=== PATIENT | male | born 1950 | race Caucasian/White ===

== ENCOUNTER → 2017-02-15 | Outpatient (CLI) | payer OTHER ==
--- NOTE | 2017-02-15 15:52 | MR ---
EXAMINATION TYPE: MR brain and iac wo/w con DATE OF EXAM: 02/15/2017 COMPARISON: NONE HISTORY: Acoustic nerve dis, Hearing loss CONTRAST: Performed utilizing 8.5 mL intravenous Gadavist gadolinium contrast. TECHNIQUE: Multiplanar, multiecho imaging on a 3.0 Jessica magnet is performed through the brain. Atte ntion is paid to the internal auditory canals with thin section imaging. Postcontrast imaging is per formed through the internal auditory canals. FINDINGS:Craniovertebral junction is normal. The pituitary is normal. Diffusion-weighted imaging is performed. No suspicious hyperintensity is present to suggest an acute intracranial infarct or acute ischemic area. Signal within the brain has scattered subcortical white matter changes throughout the brain this is g reater than expected for the patient age. Differential diagnosis could include chronic white matter i schemic changes, vasculitis, multiple sclerosis, Lyme disease.. Thin section imaging is performed through the internal auditory canals and cerebellar pontine angles. No cerebellar pontine angle masses are evident. The internal auditory canals appear normal without expansion or erosion. Postcontrast imaging was performed. No suspicious enhancement is evident within the internal audito ry canals or the included portions of the brain. Portions of the optic chiasm is visualized are unre markable. IMPRESSIONS: 1. Normal internal auditory canals. 2. Multiple subcortical white matter changes. Correlate for chronic white matter ischemic changes. Mu ltiple sclerosis is not excluded.
== END | disposition home or self-care (01) ==
LOC: RADMRIMAIN 13:09
PROVIDERS: ATTEND Otolaryngology
DX: R90.82 White matter disease, unspecified (principal); H91.92 Unspecified hearing loss, left ear; H93.3X2 Disorders of left acoustic nerve
CPT/HCPCS: 82565; 70553; A9581

== ENCOUNTER 2020-09-30 18:37 | Inpatient (IN) | payer MEDICARE, OTHER ==
[2020-09-30] MEDS ORDERED: VANCOMYCIN IV PER PHARMACY 1 EACH MISC MISCELLANE PRN (20:40)
[2020-09-30] MEDS ORDERED: AMPICILLIN-SULBACTAM 3 GM in SODIUM CHLORIDE 0.9% 100 ML IVPB STA (20:40)
--- NOTE | 2020-09-30 21:01 | ED ---
Upper Extremity HPI - General Chief Complaint: Extremity Injury, Upper Stated Complaint: fluid on elbow Time Seen by Provider: 09/30/20 20:20 Source: patient Mode of arrival: ambulatory Limitations: no limitations - History of Present Illness Initial Comments: 70 year-old male patient presents to the emergency department sent by his Dr. Browning his orthopedic brace maker for admission. Patient had surgery to the right elbow for olecranon bursitis on 09/16/20. Patient states that he had a drain in place. Since the took the drain out he has continued to have purulent discharge from the area. He reports mild discomfort. Denies any fever or chills. Denies a ny current antibiotic use. Patient denies any recent rash, cough, shortness of breath, chest pain, abdominal pain, nausea, vomiting, diarrhea, constipation, back pain, numbness, tingling, dizziness, weakness, hematuria, dysuria, urinary urgency, urinary frequency, headache, visual changes, or any other complaints. - Related Data Allergies Allergy/AdvReac Type Severity Reaction Status Date / Time No Known Allergies Allergy Verified 09/30/20 21:43 Review of Systems ROS Statement: Those systems with pertinent positive or pertinent negative responses have been documented in the HPI. ROS Other: All systems not noted in ROS Statement are negative. Past Medical History Past Medical History: Hyperlipidemia History of Any Multi-Drug Resistant Organisms: MRSA Date of last positivie culture/infection: 09/16/2020 MDRO Source:: right elbow Past Surgical History: Orthopedic Surgery Past Psychological History: No Psychological Hx Reported Smoking Status: Never smoker Past Alcohol Use History: Daily Past Drug Use History: None Reported General Exam Limitations: no limitations General appearance: alert, in no apparent distress, other (This is a well- developed, well-nourished adult male patient in no acute distress. Vital signs upon presentation are temperature 98.0F, pulse 78, respirations 17, blood pressure 151/79, pulse ox 99% on room air.) Respiratory exam: Present: normal lung sounds bilaterally. Absent: respiratory distress, wheezes, rales, rhonchi, stridor Cardiovascular Exam: Present: regular rate, normal rhythm, normal heart sounds. Absent: systolic murmur, diastolic murmur, rubs, gallop, clicks Extremities exam: Present: full ROM, normal capillary refill, other (open wound right elbow, copious purulent drainage. No odor. Mild swelling to the right arm. radial pulses 2+.). Absent: tenderness, pedal edema, joint swelling, calf tenderness Neurological exam: Present: alert, oriented X3, CN II-XII intact Psychiatric exam: Present: normal affect, normal mood Skin exam: Present: warm, dry, intact, normal color. Absent: rash Course Vital Signs 09/30/20 09/30/20 10/01/20 20:07 23:48 00:39 Temperature 98.0 F 98.1 F Pulse Rate 78 70 67 Respiratory 17 18 18 Rate Blood Pressure 151/79 139/78 134/82 O2 Sat by Pulse 99 99 98 Oximetry 10/01/20 10/01/20 01:40 03:00 Temperature Pulse Rate 68 63 Respiratory 18 18 Rate Blood Pressure 143/84 108/62 O2 Sat by Pulse 100 100 Oximetry Medical Decision Making - Medical Decision Making 70-year-old male patient presents the emergency department sent by his orthopedic brace maker for evaluation of purulent drainage from right elbow surgical incision. Physical examination revealed copious purulent drainage, surr ounding swelling. He is afebrile normal vital signs. Labs reviewed and revealed normal white blood cell count. X-ray was obtained and showed possible osteomyelitis on the olecranon process. Patient was started on Unasyn and vancomycin. He'll be admitted to the hospital for further evaluation by infectious disease. Case discussed with my attending Dr. Anderson. - Lab Data Result diagrams: 09/30/20 21:38 09/30/20 21:38 Lab Results 09/30/20 09/30/20 09/30/20 Range/Units 21:38 21:38 21:38 WBC 7.8 (3.8-10.6) k/uL RBC 3.75 L (4.30-5.90) m/uL Hgb 12.2 L (13.0-17.5) gm/dL Hct 36.8 L (39.0-53.0) % MCV 98.3 (80.0-100.0) fL MCH 32.5 (25.0-35.0) pg MCHC 33.1 (31.0-37.0) g/dL RDW 16.0 H (11.5-15.5) % Plt Count 254 (150-450) k/uL MPV 7.4 Neutrophils % 67 % Lymphocytes % 22 % Monocytes % 6 % Eosinophils % 2 % Basophils % 1 % Neutrophils # 5.2 (1.3-7.7) k/uL Lymphocytes # 1.7 (1.0-4.8) k/uL Monocytes # 0.5 (0-1.0) k/uL Eosinophils # 0.2 (0-0.7) k/uL Basophils # 0.0 (0-0.2) k/uL Macrocytosis Slight Sodium 139 (137-145) mmol/L Potassium 4.3 (3.5-5.1) mmol/L Chloride 103 (98-107) mmol/L Carbon Dioxide 28 (22-30) mmol/L Anion Gap 8 mmol/L BUN 18 (9-20) mg/dL Creatinine 0.96 (0.66-1.25) mg/dL Est GFR (CKD-EPI)AfAm >90 (>60 ml/min/1.73 sqM) Est GFR (CKD-EPI)NonAf 80 (>60 ml/min/1.73 sqM) Glucose 118 H (74-99) mg/dL Plasma Lactic Acid Clarence 0.7 (0.7-2.0) mmol/L Calcium 9.6 (8.4-10.2) mg/dL Total Bilirubin 0.4 (0.2-1.3) mg/dL AST 25 (17-59) U/L ALT 13 (4-49) U/L Alkaline Phosphatase 107 (38-126) U/L Total Protein 6.8 (6.3-8.2) g/dL Albumin 4.2 (3.5-5.0) g/dL - Radiology Data Radiology results: report reviewed, image reviewed 3 views of the right elbow are obtained. Report is reviewed in its entirety. Impression by Dr. Orlando shows erosion seen on the olecranon process that could be osteomyelitis. No fracture seen. Posterior soft tissue deformity. Disposition Clinical Impression: Septic bursitis, Osteomyelitis Disposition: ADMITTED IP TO THIS [facility] Condition: Serious Decision to Admit Reason: Admit from [facility] Decision Date: 09/30/20 Decision Time: 23:00
--- NOTE | 2020-09-30 21:13 | XR ---
EXAMINATION TYPE: XR elbow complete RT DATE OF EXAM: 09/30/2020 COMPARISON: NONE HISTORY: Infected surgical wound TECHNIQUE: 3 views FINDINGS: I see no fracture nor dislocation. There is posterior soft tissue deformity consistent with a wound. There is some erosion of the olecranon process of the ulna. This measures approximately 8 x 3 mm. IMPRESSION: Erosion seen on the olecranon process that could be osteomyelitis. No fracture seen. Post erior soft tissue deformity.
[2020-09-30 21:53] LABS: Basophils % (A) 1 %; Eosinophils # (A) 0.2 k/uL (0-0.7); Eosinophils % (A) 2 %; HCT 36.8 % (39.0-53.0); HGB 12.2 gm/dL (13.0-17.5); Lymphocytes # (A) 1.7 k/uL (1.0-4.8); Lymphocytes % (A) 22 %; MCH 32.5 pg (25.0-35.0); MCHC 33.1 g/dL (31.0-37.0); MCV 98.3 fL (80.0-100.0); Macrocytosis Slight; Mean Platelet Volume 7.4; Monocytes # (A) 0.5 k/uL (0-1.0); Monocytes % (A) 6 %; Neutrophils # (A) 5.2 k/uL (1.3-7.7); Neutrophils % (A) 67 %; Platelet Count 254 k/uL (150-450); RBC 3.75 m/uL (4.30-5.90); WBC 7.8 k/uL (3.8-10.6)
[2020-09-30] MEDS ORDERED: VANCOMYCIN 1,500 MG in SODIUM CHLORIDE 0.9% 250 ML IVPB ONE (22:00)
[2020-09-30 22:02] LABS: ALT 13 U/L (4-49); AST 25 U/L (17-59); African American GFR (CKD) >90 (>60 ml/min/1.73 sqM); Albumin 4.2 g/dL (3.5-5.0); Alkaline Phosphatase 107 U/L (38-126); Anion Gap 8 mmol/L; Blood Urea Nitrogen 18 mg/dL (9-20); Calcium 9.6 mg/dL (8.4-10.2); Carbon Dioxide 28 mmol/L (22-30); Chloride 103 mmol/L (98-107); Glucose 118 mg/dL (74-99); Non-African American GFR(CKD) 80 (>60 ml/min/1.73 sqM); Potassium 4.3 mmol/L (3.5-5.1); Sodium 139 mmol/L (137-145); Total Bilirubin 0.4 mg/dL (0.2-1.3); Total Protein 6.8 g/dL (6.3-8.2)
[2020-09-30] MEDS ORDERED: NALOXONE 0.4 MG/ML 1 ML VIAL IV PRN (22:57)
[2020-09-30] MEDS: SODIUM CHLORIDE 0.9% 1,000 ML IV SCH (23:48)
[2020-10-01] MEDS: AMPICILLIN-SULBACTAM 3 GM in SODIUM CHLORIDE 0.9% 100 ML IVPB SCH ×2 (05:25→09:12)
--- NOTE | 2020-10-01 09:45 | P.HPOR ---
History of Present Illness H&P Date: 09/30/20 Chief Complaint: Right elbow infection This is a pleasant 70-year-old male who we have been following in our office for problems with his right elbow. He had developed infection to the right elbow olecranon bursa and had an opening with draining. He was taken to the OR on 0 09/16/2020 for I&D of the elbow along with triceps repair. The patient was seen for his. Evaluation on 09/30/2020 and was noted to have significant drainage and a large opening to the elbow. He was on antibiotics which she finished 2 days prior. Patient has history of rheumatoid arthritis and is on and immunosuppressive-type medication for his arthritis. He is not sure of the name of his medication. He is a patient of Dr. Gómez. The intraoperative cultures showed methicillin sensitive staph aureus. He is admitted for service for IV antibiotics and infectious disease and wound care evaluation. Past Medical History Past Medical History: Hyperlipidemia History of Any Multi-Drug Resistant Organisms: MRSA Date of last positivie culture/infection: 09/16/2020 MDRO Source:: right elbow Past Surgical History: Orthopedic Surgery Past Psychological History: No Psychological Hx Reported Smoking Status: Never smoker Past Alcohol Use History: Daily Past Drug Use History: None Reported Medications and Allergies Allergies Allergy/AdvReac Type Severity Reaction Status Date / Time No Known Allergies Allergy Verified 09/30/20 21:43 Physical Examination This is a pleasant 70-year-old male in no acute distress. He is alert and oriented 3. He presented to the office with his . Exam of the right elbow reveals minimal erythema. There is a 1 cm opening in the middle of the incision. Sutures are removed and the incision has opened a bit. There is significant purulent drainage from the wound. The triceps repair suture is visible. He has full range of motion of the elbow with minimal pain. Neurovascular status the upper extremity is intact. Results - Labs Labs: Abnormal Lab Results - Last 24 Hours (Table) 09/30/20 09/30/20 Range/Units 21:38 21:38 RBC 3.75 L (4.30-5.90) m/uL Hgb 12.2 L (13.0-17.5) gm/dL Hct 36.8 L (39.0-53.0) % RDW 16.0 H (11.5-15.5) % Glucose 118 H (74-99) mg/dL Microbiology - Last 24 Hours (Table) 09/30/20 21:38 Gram Stain - Preliminary Elbow - Right Wound Culture - Preliminary H & H 09/30/20 Range/Units 21:38 Hgb 12.2 L (13.0-17.5) gm/dL Hct 36.8 L (39.0-53.0) % Result Diagrams: 09/30/20 21:38 09/30/20 21:38 Assessment and Plan (1) Infection of right elbow Current Visit: Yes Status: Acute Code(s): M00.9 - PYOGENIC ARTHRITIS, UNSPECIFIED SNOMED Code(s): 570873260 (2) Septic bursitis Current Visit: Yes Status: Acute Code(s): M71.10 - OTHER INFECTIVE BURSITIS, UNSPECIFIED SITE SNOMED Code(s): 490119221 Plan: The clinical findings are discussed with the patient. It is recommended he be admitted for IV antibiotics and evaluation with wound care management and infectious disease. He likely would benefit from a wound VAC to the area. I will defer that to Dr Tristan and wound care team. Internal medicine has also been consulted for medical management.
[2020-10-01] MEDS ORDERED: VANCOMYCIN 1,500 MG in SODIUM CHLORIDE 0.9% 250 ML IVPB SCH (10:00)
--- NOTE | 2020-10-01 13:14 | P.HPIM ---
<Ethan Spicer - Last Filed: 10/01/20 12:48> History of Present Illness H&P Date: 10/01/20 History of Presenting Illness: Patient is a 70-year-old male with a past medical history of hyperlipidemia and rheumatoid arthritis. He was recently diagnosed with infectious bursitis and underwent a surgical I&D, triceps repair and drain placement on 09/16/[address] Browning. Patient reports that the drain was removed a few days later by his orthopedic surgeon and he has since been having continued purulent drainage from this open wound. Patient is currently admitted under orthopedic surgery team under Dr. Browning. We have been consulted for continued close medical management throughout his hospital stay. Infectious disease also following and has placed patient on cefazolin 2 g every 8 hours. Patient has a history of MRSA with recent wound cultures obtained on 09/16/20 resulting positive for Staphylococcus aureus. Patient was seen and fully examined in the emergency department. He reports currently having 8 out of 10 pain to his right elbow and describes it as a constant throbbing sensation. Patient denies having any recent fevers, chills, diaphoresis, chest pain or palpitations, shortness of breath, or experiencing any numbness/tingling/weakness in his right arm distal to surgical site. Patient does report persistent pain, redness, and drainage. Patient reports he has been tolerating a diet and denies having any other complaints or needs at this time. Review of systems: Pertinent positives and negatives as discussed in HPI, a complete review of systems was performed and all other systems are negative. Physical exam: Vital signs reviewed and stable. General: Nontoxic, no distress and appears stated age. Derm: Skin warm and dry, normal coloration for ethnicity. Right elbow open wound with packing in place surrounding erythema and drainage. Dressing in place. Head: Atraumatic, normocephalic and symmetric. Eyes: EOMs intact, no lid lag, and anicteric sclera Mouth: no lip lesions, mucus membranes moist Cardiovascular: regular rate and rhythm with normal S1S2, no murmur, positive posterior tibial pulses bilaterally, and cap refill < 2 seconds. Lungs: Respirations even, regular, and unlabored on room air. Lungs CTA bilaterally, no rhonchi, no rales, no wheezing, and no accessory muscle usage. Abdominal: soft, nontender to palpation, no guarding, no appreciable organomegaly Ext: ROM intact. No gross muscle atrophy, no edema, no contractures Neuro: Speech clear, face symmetrical and CN II-XII grossly intact with no noted focal neuro deficits Psych: Alert and oriented to person, place, time, and situation. Appropriate and pleasant affect. Assessment and Plan of Care: Infectious olecranon bursitis of right elbow status post I&D with delayed wound healing -Pt was recently diagnosed with infectious bursitis and underwent a surgical I&D, triceps repair and drain placement on 09/16/[address] Browning. -Patient has a history of MRSA with recent wound cultures obtained on 09/16/20 resulting positive for Staphylococcus aureus -Repeat wound cultures and blood cultures obtained. -Continue IV antibiotics with cefazolin as recommended by infectious disease. -Pain management and symptomatic care. -Hold methotrexate while treating acute infection. Rheumatoid arthritis -Hold methotrexate at this time while acute infection is being treated. -Pain management and symptomatic care to be provided. -Patient to be provided with assistance as needed. Hyperlipidemia Continue daily medication regimen with atorvastatin 20 mg nightly. Thank you for allowing us to participate in the care of this pleasant patient. Do not hesitate to contact us with questions. Someone can be reached from the [facility] hospitalist group all hours of the day at [phone] or via [employer]. Past Medical History Past Medical History: Hyperlipidemia History of Any Multi-Drug Resistant Organisms: MRSA Date of last positivie culture/infection: 09/16/2020 MDRO Source:: right elbow Past Surgical History: Orthopedic Surgery Past Psychological History: No Psychological Hx Reported Smoking Status: Never smoker Past Alcohol Use History: Daily Past Drug Use History: None Reported Medications and Allergies Home Medications Medication Instructions Recorded Confirmed Type Albuterol Sulfate [Albuterol 1 puff PO RT-Q6H PRN 10/01/20 10/01/20 History Sulfate Hfa] Cholecalciferol [Vitamin D3 (25 25 mcg PO DAILY 10/01/20 10/01/20 History Mcg = 1000 Iu)] Folic Acid 1 mg PO DAILY 10/01/20 10/01/20 History Naproxen [Naprosyn] 500 mg PO Q12HR PRN 10/01/20 10/01/20 History Simvastatin [Zocor] 40 mg PO HS 10/01/20 10/01/20 History metHOTREXate sodium [Methotrexate] 12.5 mg PO Q7D 10/01/20 10/01/20 History Allergies Allergy/AdvReac Type Severity Reaction Status Date / Time No Known Allergies Allergy Verified 10/01/20 09:41 Physical Exam Vitals: Vital Signs Temp Pulse Resp BP Pulse Ox 10/01/20 05:28 97.1 F L 59 L 18 123/68 98 10/01/20 03:00 63 18 108/62 100 10/01/20 01:40 68 18 143/84 100 10/01/20 00:39 67 18 134/82 98 09/30/20 23:48 98.1 F 70 18 139/78 99 09/30/20 20:07 98.0 F 78 17 151/79 99 Intake and Output 09/30/20 10/01/20 10/01/20 22:59 06:59 14:59 Other: Weight 85.275 kg 85.275 kg Results CBC & Chem 7: 09/30/20 21:38 09/30/20 21:38 Labs: Abnormal Lab Results - Last 24 Hours (Table) 09/30/20 09/30/20 Range/Units 21:38 21:38 RBC 3.75 L (4.30-5.90) m/uL Hgb 12.2 L (13.0-17.5) gm/dL Hct 36.8 L (39.0-53.0) % RDW 16.0 H (11.5-15.5) % Glucose 118 H (74-99) mg/dL Microbiology - Last 24 Hours (Table) 09/30/20 21:38 Gram Stain - Preliminary Elbow - Right Wound Culture - Preliminary Thrombosis Risk Factor Assmnt - Choose All That Apply Any of the Below Risk Factors Present?: Yes Each Factor Represents 1 point: Obesity (BMI >25) Other Risk Factors: Yes Each Risk Factor Represents 2 Points: Age 61-74 years Thrombosis Risk Factor Assessment Total Risk Factor Score: 3 Thrombosis Risk Factor Assessment Level: Moderate Risk <Megan Lamar - Last Filed: 10/01/20 18:52> History of Present Illness Patient seen and examined independently. Patient was also seen by Ethan Spicer NP and case was discussed. I am in agreement with subjective, physical exam, assessment and plan as written above and amended below. He is feeling okay, not much pain in the elbow. We had a jonas discussion I he will likely need IV antibiotics. Await infectious disease recommendations. Orthopedics is concerned that he will need a wound VAC over the area, awaiting final dictation from infectious disease. Agree with holding methotrexate at this time. General: non toxic, no distress, appears at stated age Derm: warm, dry dressing in place over right elbow Head: atraumatic, normocephalic, symmetric Eyes: EOMI, no lid lag, anicteric sclera Mouth: no lip lesion, mucus membranes moist Cardiovascular: S1S2 reg, no murmur, positive posterior tibial pulse bilateral, Lungs: CTA bilateral, no rhonchi, no rales , no accessory muscle use Psych: Alert, oriented, appropriate affect Physical Exam Osteopathic Statement: *. No significant issues noted on an osteopathic structural exam other than those noted in the History and Physical/Consult. Vitals: Vital Signs Temp Pulse Pulse Resp BP BP Pulse Ox 10/01/20 14:00 97.7 F 66 16 112/63 99 10/01/20 05:28 97.1 F L 59 L 18 123/68 98 10/01/20 03:00 63 18 108/62 100 10/01/20 01:40 68 18 143/84 100 10/01/20 00:39 67 18 134/82 98 09/30/20 23:48 98.1 F 70 18 139/78 99 09/30/20 20:07 98.0 F 78 17 151/79 99 Intake and Output 10/01/20 10/01/20 10/01/20 06:59 14:59 22:59 Intake Total 236 236 Balance 236 236 Intake: Oral 236 236 Other: # Voids 2 Weight 85.275 kg Results CBC & Chem 7: 09/30/20 21:38 09/30/20 21:38 Labs: Abnormal Lab Results - Last 24 Hours (Table) 09/30/20 09/30/20 Range/Units 21:38 21:38 RBC 3.75 L (4.30-5.90) m/uL Hgb 12.2 L (13.0-17.5) gm/dL Hct 36.8 L (39.0-53.0) % RDW 16.0 H (11.5-15.5) % Glucose 118 H (74-99) mg/dL Microbiology - Last 24 Hours (Table) 09/30/20 21:38 Gram Stain - Preliminary Elbow - Right Wound Culture - Preliminary
[2020-10-01] MEDS: HEPARIN SODIUM,PORCINE/PF 5,000 UNIT/0.5 ML SYRINGE SQ SCH ×2 (16:30→23:27)
[2020-10-01] MEDS: SODIUM CHLORIDE 0.9% 1,000 ML IV SCH (16:33)
[2020-10-01] MEDS: ATORVASTATIN 20 MG TAB PO SCH (21:50)
[2020-10-01] MEDS: HYDROcodone/APAP 5-325MG 1 EACH TAB PO PRN (21:50)
[2020-10-02] MEDS: SODIUM CHLORIDE 0.9% 1,000 ML IV SCH ×2 (01:58→16:24)
[2020-10-02 07:39] LABS: African American GFR (CKD) >90 (>60 ml/min/1.73 sqM); Non-African American GFR(CKD) >90 (>60 ml/min/1.73 sqM)
--- NOTE | 2020-10-02 08:05 | P.CONS ---
History of Present Illness - Reason for Consult Consult date: 10/01/20 right elbow infection Requesting physician: Aj Browning - Chief Complaint right elbow pain and drainage x few days - History of Present Illness History of present illness : Patient is 70-year-old male with a past medical he significant for rheumatoid arthritis patient recently having problem with the right elbow swelling and redness for the patient has been evaluated in the outpatient setting by orthopedics and the patient did have a office-based I&D done on 09/16/2020 culture subsequently was positive for MSSA the patient has been treated with the oral antibiotics with the patient is not sure about and is not documented in his home medication patient was evaluated and was noticed to have continued purulent drainage from his open wound and some more dehiscence per the patient has been sent to the ER for IV antibiotic therapy patient denies having any fever or any chills has been complaining of pain to the right elbow about 8 out of 10 more of a dull aching at times throbbing and no radiation patient on presentation to the hospital was afebrile patient did have a normal white count patient was started on Unasyn and vancomycin infectious he was con sulted for further management patient did have x-rays of the elbow we did shows erosion seen on the olecranon process that could represent osteomyelitis no fracture seen Review of system: CONSTITUTIONAL: Positive for weakness however denies high-grade fever. EYES: No complaint. ENT: No complaint. RESPIRATORY: No complaint. CARDIOVASCULAR: No complaint. GENITOURINARY: No complaint. GASTROINTESTINAL: No complaint. MUSCULOSKELETAL: As per history present illness. INTEGUMENTARY: No complaint. PSYCHOLOGIC: No complaint. ENDOCRINE: No complaint. NEUROLOGIC: No complaint. Past medical history : Reviewed, documented below Past surgical history : Reviewed, documented below Social history: Reviewed, documented below Medications: Reviewed, as documented below GENERAL DESCRIPTION: Elderly male lying in bed, no distress. No tachypnea or accessory muscle of respiration use. HEENT: Shows Pallor , no scleral icterus. Oral mucous membrane is dry. NECK: Trachea central, no thyromegaly. LUNGS: Unlabored breathing. Clear to auscultation anteriorly. No wheeze or crackle. HEART: S1, S2, regular rate and rhythm. ABDOMEN: Soft, no tenderness , guarding or rigidity EXTREMITIES: Right elbow did have an open wound with no significant slough tissue no surrounding swelling redness and minimal drainage. SKIN: No rash, no masses palpable. NEUROLOGICAL: The patient is awake, alert, oriented x3, mood and affect normal. LABS AND RADIOLOGY: Reviewed results see below Assessment : Patient with a pain and draining wound to the right elbow area in this patient who is status post triceps repair and I&D of the olecranon bursa cultures positive for MSSA in this patient who has failed outpatient oral bite therapy now with the abnormality on the x-ray suspicious for osteomyelitis Plan: 1-discontinue vancomycin and Unasyn 2-cefazolin 2 g every 8 hour 3-obtain inflammatory markers 4-patient will need PICC line and outpatient IV antibiotic therapy We will follow on clinical condition and cultures to further adjust medication if needed Thank you for this consultation we will follow the patient along with you Past Medical History Past Medical History: Hyperlipidemia History of Any Multi-Drug Resistant Organisms: MRSA Year Discovered:: 09/16/2020 MDRO Source:: right elbow Past Surgical History: Orthopedic Surgery Past Psychological History: No Psychological Hx Reported Smoking Status: Never smoker Past Alcohol Use History: Daily Past Drug Use History: None Reported Medications and Allergies Home Medications Medication Instructions Recorded Confirmed Type Albuterol Sulfate [Albuterol 1 puff PO RT-Q6H PRN 10/01/20 10/01/20 History Sulfate Hfa] Cholecalciferol [Vitamin D3 (25 25 mcg PO DAILY 10/01/20 10/01/20 History Mcg = 1000 Iu)] Folic Acid 1 mg PO DAILY 10/01/20 10/01/20 History Naproxen [Naprosyn] 500 mg PO Q12HR PRN 10/01/20 10/01/20 History Simvastatin [Zocor] 40 mg PO HS 10/01/20 10/01/20 History metHOTREXate sodium [Methotrexate] 12.5 mg PO Q7D 10/01/20 10/01/20 History Allergies Allergy/AdvReac Type Severity Reaction Status Date / Time No Known Allergies Allergy Verified 10/01/20 09:41 Physical Exam Vitals: Vital Signs Temp Pulse Resp BP Pulse Ox 10/01/20 05:28 97.1 F L 59 L 18 123/68 98 10/01/20 03:00 63 18 108/62 100 10/01/20 01:40 68 18 143/84 100 10/01/20 00:39 67 18 134/82 98 09/30/20 23:48 98.1 F 70 18 139/78 99 09/30/20 20:07 98.0 F 78 17 151/79 99 Intake and Output 09/30/20 10/01/20 10/01/20 22:59 06:59 14:59 Other: Weight 85.275 kg Results CBC & Chem 7: 09/30/20 21:38 10/02/20 06:54 Labs: Abnormal Lab Results - Last 24 Hours (Table) 09/30/20 09/30/20 Range/Units 21:38 21:38 RBC 3.75 L (4.30-5.90) m/uL Hgb 12.2 L (13.0-17.5) gm/dL Hct 36.8 L (39.0-53.0) % RDW 16.0 H (11.5-15.5) % Glucose 118 H (74-99) mg/dL Microbiology - Last 24 Hours (Table) 09/30/20 21:38 Gram Stain - Preliminary Elbow - Right Wound Culture - Preliminary
[2020-10-02] MEDS ORDERED: VANCOMYCIN TROUGH DUE 1 EACH MISC MISCELLANE ONE (09:00)
--- NOTE | 2020-10-02 09:23 | P.PN ---
Subjective Progress Note Date: 10/02/20 Principal diagnosis: Infection right elbow. This is a pleasant 70-year-old male who we have been following in our office for problems with his right elbow. He had developed infection to the right elbow olecranon bursa and had an opening with draining. He was taken to the OR on 09/16/2020 for I&D of the elbow along with triceps repair. The patient was seen for his postop evaluation on 09/30/2020 and was noted to have significant drainage and a large opening to the elbow. He was on antibiotics which she finished 2 days prior. Patient has history of rheumatoid arthritis and is on and immunosuppressive-type medication for his arthritis. He is not sure of the name of his medication. He is a patient of Dr. Gómez. The intraoperative cultures showed methicillin sensitive staph aureus. He is admitted for service for IV antibiotics and infectious disease and wound care evaluation. 10/02/2020: The patient has been seen by infectious disease. Repeat cultures were taken which are pending. Blood cultures are showing no growth at 24 hours. Elbow x-ray shows questionable erosion at the olecranon versus postsurgical changes from the triceps repair. The patient is afebrile. No new complaints or concerns today. Objective - Vital Signs Vital signs: Vital Signs Temp 98.3 F 10/02/20 06:45 Pulse 62 10/02/20 06:45 Resp 16 10/02/20 06:45 BP 132/72 10/02/20 06:45 Pulse Ox 96 10/02/20 06:45 Intake & Output 10/01/20 10/02/20 10/02/20 18:59 06:59 18:59 Intake Total 472 Balance 472 Weight 85.275 kg Intake: Oral 472 Other: # Voids 2 1 - Exam this is a pleasant 70-year-old male in no acute distress. He is alert and oriented 3. Exam of the right elbow reveals that his packing has fallen out. Dressing has purulent drainage. There is minimal erythema to the elbow. The wound has opened completely. He has slight restriction elbow motion. Neurovascular status the upper extremities intact. - Labs CBC & Chem 7: 09/30/20 21:38 10/02/20 06:54 Labs: Microbiology - Last 24 Hours (Table) 09/30/20 22:00 Blood Culture - Preliminary Blood No Growth after 24 hours 09/30/20 21:45 Blood Culture - Preliminary Blood No Growth after 24 hours 09/30/20 21:38 Gram Stain - Preliminary Elbow - Right Wound Culture - Preliminary Assessment and Plan (1) Infection of right elbow Current Visit: Yes Status: Acute Code(s): M00.9 - PYOGENIC ARTHRITIS, UNSPECIFIED SNOMED Code(s): 863799464 (2) Septic bursitis Current Visit: Yes Status: Acute Code(s): M71.10 - OTHER INFECTIVE BURSITIS, UNSPECIFIED SITE SNOMED Code(s): 419533745 Plan: The clinical findings are discussed with the patient. infectious disease was planning on PICC line for home IV antibiotics. The wound will be repacked today once iodoform packing is sent to the floor. I would recommend he be seen by wound management for possible wound VAC application and follow-up in the wound care center.
[2020-10-02] MEDS: HEPARIN SODIUM,PORCINE/PF 5,000 UNIT/0.5 ML SYRINGE SQ SCH ×2 (10:09→16:24)
[2020-10-02] MEDS: CHOLECALCIFEROL 25 MCG (1000 IU) TABLET PO SCH (10:09)
[2020-10-02] MEDS: FOLIC ACID 1 MG TAB PO SCH (10:09)
[2020-10-02] MEDS: HYDROcodone/APAP 5-325MG 1 EACH TAB PO PRN ×2 (10:21→16:52)
[2020-10-02] MEDS ORDERED: LIDOCAINE 1% INJ 10MG/ML (20 ML MDV) ONE (10:39)
--- NOTE | 2020-10-02 11:13 | IR ---
PICC LINE PLACEMENT: HISTORY: Infection requiring long-term antibiotic therapy PROCEDURE: Ultrasound and fluoroscopic guidance of PICC line placement. COMPLICATIONS: None ANESTHESIA: 1. 1% Lidocaine locally. FINDINGS/TECHNIQUE: The procedure was explained to the patient. The risks, complications, benefits and alternatives were discussed and any questions were answered. Informed consent was obtained. The patient was placed supine on the fluoroscopic table and prepped and draped in the usual sterile fash ion. Utilizing a 21 gauge needle and sonographic and fluoroscopic guidance, access in the left basi lic vein was achieved and there is placement of a 0.018 guidewire. The vein is patent. A 4-F sheath was placed over the guidewire. The guidewire and dilator were removed and a 4-F. PICC line was plac ed through the sheath with the tip at the level of the SVC. The sheath was removed, the catheter was flushed and sutured into position. The patient was stable throughout the procedure and remained sta ble upon discharge from the Department of Radiology. The vein puncture was patent under ultrasound. A powers scale image was obtained to document patency of the vein punctured. All elements of the maximal barrier technique were utilized. FLUOROSCOPY TIME: 0.2 minutes and one image submitted IMPRESSION: Successful PICC line placement under ultrasound and fluoroscopic guidance.
--- NOTE | 2020-10-02 15:19 | P.PN ---
<Ethan Spicer - Last Filed: 10/02/20 15:10> Subjective Progress Note Date: 10/02/20 Hospital course Patient is a 70-year-old male with a past medical history of hyperlipidemia and rheumatoid arthritis. He was recently diagnosed with infectious bursitis and underwent a surgical I&D, triceps repair and drain placement on 09/16/[address] Browning. Patient reports that the drain was removed a few days later by his orthopedic surgeon and he has since been having continued purulent drainage from this open wound. Patient is currently admitted under orthopedic surgery team under Dr. Browning. We have been consulted for continued close medical management throughout his hospital stay. Infectious disease also following and has placed patient on cefazolin 2 g every 8 hours. X-ray right elbow revealing erosion to the olecranon process unable to rule out osteomyelitis. Patient has a history of MRSA with recent wound cultures obtained on 09/16/20 resulting positive for Staphylococcus aureus. Blood cultures showing no growth after 24 hours. Preliminary wound cultures of right elbow positive for presumptive staph aureus, awaiting finalization with sensitivity report. Patient remains on cefazolin at this time pending these results. 10/02/20: Patient was seen and fully evaluated at the bedside. He was sitting up in the chair. Dressing with packing remains to right elbow. Dressing is currently clean dry and intact. Preliminary cultures of right elbow resulting presumptive for staph aureus. Blood cultures showing no growth after 24 hours. Patient remains on IV antibiotics cefazolin pending further results. Patient reports right elbow pain currently controlled and denies having any further needs or concerns at this time including chills, diaphoresis, headache, lightheadedness, dizziness, chest pain, palpitations, shortness of breath, or experiencing any numbness/tingling/weakness in his extremities. Patient being taken down for PICC line placement this morning for needed home IV antibiotics. Orthopedic specialists recommending possible wound VAC application. Physical exam: Vital signs reviewed and stable. General: Nontoxic, no distress and appears stated age. Derm: Skin warm and dry, normal coloration for ethnicity. Right elbow open wound with packing in place surrounding erythema and drainage. Dressing in place. Head: Atraumatic, normocephalic and symmetric. Eyes: EOMs intact, no lid lag, and anicteric sclera Mouth: no lip lesions, mucus membranes moist Cardiovascular: regular rate and rhythm with normal S1S2, no murmur, positive posterior tibial pulses bilaterally, and cap refill < 2 seconds. Lungs: Respirations even, regular, and unlabored on room air. Lungs CTA bilaterally, no rhonchi, no rales, no wheezing, and no accessory muscle usage. Abdominal: soft, nontender to palpation, no guarding, no appreciable organomegaly Ext: ROM intact. No gross muscle atrophy, no edema, no contractures Neuro: Speech clear, face symmetrical and CN II-XII grossly intact with no noted focal neuro deficits Psych: Alert and oriented to person, place, time, and situation. Appropriate and pleasant affect. Assessment and Plan of Care: Infectious olecranon bursitis of right elbow status post I&D with delayed wound healing -Pt was recently diagnosed with infectious bursitis and underwent a surgical I&D, triceps repair and drain placement on 09/16/[address] Browning. -Patient has a history of MRSA with recent wound cultures obtained on 09/16/20 resulting positive for Staphylococcus aureus. -Repeat wound cultures completed upon arrival to Hospital on 09/30/20 showing a preliminary report of presumptive staph aureus, awaiting final results and sensitivity report. -Blood cultures showing no growth after 24 hours. -Continue IV antibiotics with cefazolin as recommended by infectious disease pending further results. -Pain management and symptomatic care. -Hold methotrexate while treating acute infection. Rheumatoid arthritis -Hold methotrexate at this time while acute infection is being treated. -Pain management and symptomatic care to be provided. -Patient to be provided with assistance as needed. Hyperlipidemia Continue daily medication regimen with atorvastatin 20 mg nightly. Thank you for allowing us to participate in the care of this pleasant patient. Do not hesitate to contact us with questions. Someone can be reached from the [facility] [place] hospitalist group all hours of the day at [phone] or via [employer]. Objective - Vital Signs Vital signs: Vital Signs Temp 98.3 F 10/02/20 06:45 Pulse 62 10/02/20 06:45 Resp 16 10/02/20 06:45 BP 132/72 10/02/20 06:45 Pulse Ox 96 10/02/20 06:45 Intake & Output 10/01/20 10/02/20 10/02/20 18:59 06:59 18:59 Intake Total 472 Balance 472 Weight 85.275 kg Intake: Oral 472 Other: # Voids 2 1 - Labs CBC & Chem 7: 09/30/20 21:38 10/02/20 06:54 Labs: Microbiology - Last 24 Hours (Table) 09/30/20 22:00 Blood Culture - Preliminary Blood No Growth after 24 hours 09/30/20 21:45 Blood Culture - Preliminary Blood No Growth after 24 hours 09/30/20 21:38 Gram Stain - Preliminary Elbow - Right Wound Culture - Preliminary <Megan Lamar - Last Filed: 10/02/20 19:02> Subjective Ethan Spicer NP rendered care for this patient independently, reviewed the findings and plan as documented in the note above. I did not physically speak with or examine the patient on this date. Case discussed with infectious disease. He has ordered outpatient IV antibiotics as well as wound VAC. Currently awaiting approval from ID. Objective - Vital Signs Vital signs: Vital Signs Temp 97.2 F L 10/02/20 14:00 Pulse 62 10/02/20 06:45 Resp 16 10/02/20 14:00 BP 147/77 10/02/20 14:00 Pulse Ox 96 10/02/20 14:00 Intake & Output 10/02/20 10/02/20 10/03/20 06:59 18:59 06:59 Other: # Voids 1 3 # Bowel Movements 1 - Labs CBC & Chem 7: 09/30/20 21:38 10/02/20 06:54 Labs: Microbiology - Last 24 Hours (Table) 09/30/20 21:38 Gram Stain - Preliminary Elbow - Right Wound Culture - Preliminary Presumptive Staph aureus 09/30/20 22:00 Blood Culture - Preliminary Blood No Growth after 24 hours 09/30/20 21:45 Blood Culture - Preliminary Blood No Growth after 24 hours
--- NOTE | 2020-10-02 16:37 | PN ---
PROGRESS NOTE DATE OF SERVICE: 10/02/2020 REASON FOR FOLLOWUP: Right elbow wound and underlying osteomyelitis, MSSA. INTERVAL HISTORY: The patient is afebrile. The patient is currently feeling better, breathing comfortably. Pain to the right elbow has slightly decreased. No chest pain, shortness of breath or cough. No abdominal pain or diarrhea. PHYSICAL EXAMINATION: Blood pressure is 132/72 with a pulse of 72, temperature 98.3. He is 96% on room air. GENERAL DESCRIPTION: General description is an elderly male up in the room in no distress. RESPIRATORY SYSTEM: Unlabored breathing. Clear to auscultation anteriorly. HEART: S1, S2. Regular rate and rhythm. ABDOMEN: Soft. No tenderness. Right elbow wound with no significant slough tissue or surrounding redness or drainage. LABS: Creatinine 0.70. Culture with presumptive Staph aureus. DIAGNOSTIC IMPRESSION AND PLAN: Patient with a right elbow infection concerning for underlying osteomyelitis. Would recommend local wound care with a wound V.A.C., cefazolin 2 grams q.8 hours. Once antibiotic is arranged, will be ready to go from ID standpoint. Continue with supportive care. MMODL / IJN: [id number] /
[2020-10-02] MEDS: ATORVASTATIN 20 MG TAB PO SCH (20:39)
[2020-10-03] MEDS: HEPARIN SODIUM,PORCINE/PF 5,000 UNIT/0.5 ML SYRINGE SQ SCH ×3 (00:01→17:15)
[2020-10-03] MEDS: SODIUM CHLORIDE 0.9% 1,000 ML IV SCH ×2 (06:08→17:15)
[2020-10-03 07:08] LABS: African American GFR (CKD) >90 (>60 ml/min/1.73 sqM); Anion Gap 4 mmol/L; Blood Urea Nitrogen 14 mg/dL (9-20); Calcium 9.1 mg/dL (8.4-10.2); Carbon Dioxide 28 mmol/L (22-30); Chloride 105 mmol/L (98-107); Glucose 116 mg/dL (74-99); Non-African American GFR(CKD) >90 (>60 ml/min/1.73 sqM); Potassium 4.2 mmol/L (3.5-5.1); Sodium 137 mmol/L (137-145)
[2020-10-03] MEDS: HYDROcodone/APAP 5-325MG 1 EACH TAB PO PRN (08:45)
[2020-10-03] MEDS: FOLIC ACID 1 MG TAB PO SCH (08:47)
[2020-10-03] MEDS: CHOLECALCIFEROL 25 MCG (1000 IU) TABLET PO SCH (08:47)
[2020-10-03 08:51] LABS: HCT 33.8 % (39.6-50.0); HGB 10.7 g/dL (13.0-17.0); MCH 31.5 pg (27.0-32.0); MCHC 31.7 g/dL (32.0-37.0); MCV 99.4 fL (80.0-97.0); Mean Platelet Volume 9.6 fL (9.5-12.2); Platelet Count 217 X 10*3/uL (140-440); RDW 15.9 % (11.5-14.5); WBC 5.63 X 10*3/uL (4.50-10.00)
--- NOTE | 2020-10-03 09:51 | P.PN ---
Subjective Progress Note Date: 10/03/20 Principal diagnosis: Infection right elbow. This is a pleasant 70-year-old male who we have been following in our office for problems with his right elbow. He had developed infection to the right elbow olecranon bursa and had an opening with draining. He was taken to the OR on 09/16/2020 for I&D of the elbow along with triceps repair. The patient was seen for his postop evaluation on 09/30/2020 and was noted to have significant drainage and a large opening to the elbow. He was on antibiotics which she finished 2 days prior. Patient has history of rheumatoid arthritis and is on and immunosuppressive-type medication for his arthritis. He is not sure of the name of his medication. He is a patient of Dr. Gómez. The intraoperative cultures showed methicillin sensitive staph aureus. He is admitted for service for IV antibiotics and infectious disease and wound care evaluation. 10/02/2020: The patient has been seen by infectious disease. Repeat cultures were taken which are pending. Blood cultures are showing no growth at 24 hours. Elbow x-ray shows questionable erosion at the olecranon versus postsurgical changes from the triceps repair. The patient is afebrile. No new complaints or concerns today. 10/03/2020: The patient is doing well today. Wound VAC is in place. PICC line has been inserted. He is afebrile. He has no new complaints or concerns today. He is anxiously awaiting discharge. Objective - Vital Signs Vital signs: Vital Signs Temp 97.9 F 10/03/20 08:00 Pulse 75 10/03/20 08:00 Resp 18 10/03/20 08:00 BP 150/82 10/03/20 08:00 Pulse Ox 94 L 10/03/20 08:00 Intake & Output 10/02/20 10/03/20 10/03/20 18:59 06:59 18:59 Other: Voiding Method Toilet # Voids 3 1 # Bowel Movements 1 - Exam this is a pleasant 70-year-old male in no acute distress. Wound VAC is in place. He has fairly good range of motion of the elbow. Full wrist and finger motion. Neurovascular status to the upper extremity is intact. - Labs CBC & Chem 7: 10/03/20 06:36 10/03/20 06:36 Labs: Abnormal Lab Results - Last 24 Hours (Table) 10/03/20 10/03/20 Range/Units 06:36 06:36 RBC 3.40 L (4.40-5.60) X 10*6/uL Hgb 10.7 L (13.0-17.0) g/dL Hct 33.8 L (39.6-50.0) % MCV 99.4 H (80.0-97.0) fL MCHC 31.7 L (32.0-37.0) g/dL RDW 15.9 H (11.5-14.5) % Glucose 116 H (74-99) mg/dL Microbiology - Last 24 Hours (Table) 09/30/20 22:00 Blood Culture - Preliminary Blood No Growth after 48 hours 09/30/20 21:45 Blood Culture - Preliminary Blood No Growth after 48 hours 09/30/20 21:38 Gram Stain - Preliminary Elbow - Right Wound Culture - Preliminary Presumptive Staph aureus Assessment and Plan (1) Infection of right elbow Current Visit: Yes Status: Acute Code(s): M00.9 - PYOGENIC ARTHRITIS, UNSPECIFIED SNOMED Code(s): 247443994 (2) Septic bursitis Current Visit: Yes Status: Acute Code(s): M71.10 - OTHER INFECTIVE BURSITIS, UNSPECIFIED SITE SNOMED Code(s): 567592986 Plan: The clinical findings are discussed with the patient. He may be discharged from an orthopedic standpoint. He is awaiting wound VAC for home and IV antibiotic arrangements for home.
--- NOTE | 2020-10-03 12:59 | P.PN ---
<Ethan Spicer - Last Filed: 10/03/20 12:51> Subjective Progress Note Date: 10/03/20 Hospital course Patient is a 70-year-old male with a past medical history of hyperlipidemia and rheumatoid arthritis. He was recently diagnosed with infectious bursitis and underwent a surgical I&D, triceps repair and drain placement on 09/16/[address] Browning. Patient reports that the drain was removed a few days later by his orthopedic surgeon and he has since been having continued purulent drainage from this open wound. Patient is currently admitted under orthopedic surgery team under Dr. Browning. We have been consulted for continued close medical management throughout his hospital stay. Infectious disease also following and has placed patient on cefazolin 2 g every 8 hours. X-ray right elbow revealing erosion to the olecranon process unable to rule out osteomyelitis. Patient has a history of MRSA with recent wound cultures obtained on 09/16/20 resulting positive for Staphylococcus aureus. Blood cultures showing no growth after 24 hours. Preliminary wound cultures of right elbow positive for presumptive staph aureus, awaiting finalization with sensitivity report. Patient remains on cefazolin at this time pending these results. 10/02/20: Patient was seen and fully evaluated at the bedside. He was sitting up in the chair. Dressing with packing remains to right elbow. Dressing is currently clean dry and intact. Preliminary cultures of right elbow resulting presumptive for staph aureus. Blood cultures showing no growth after 24 hours. Patient remains on IV antibiotics cefazolin pending further results. Patient reports right elbow pain currently controlled and denies having any further needs or concerns at this time including chills, diaphoresis, headache, lightheadedness, dizziness, chest pain, palpitations, shortness of breath, or experiencing any numbness/tingling/weakness in his extremities. Patient being taken down for PICC line placement this morning for needed home IV antibiotics. Orthopedic specialists recommending possible wound VAC application. 10/03/20: Patient seen and fully evaluated at bedside this morning. He was sitting up in the bed. He reports feeling great today and denies having any needs or concerns. He reports the pain to his right elbow is currently controlled and he denies experiencing any numbness/tingling/weakness. Wound VAC is in place to right elbow. Labs reviewed, CBC revealing macrocytic normochromic anemia with hemoglobin 10.7, hematocrit 33.8, MCV 99.4, MCH 31.5, MCHC 31.7, and RDW of 15.9. Wound culture showing presumptive staph aureus awaiting sensitivity report. Blood culture showing no growth after 48 hours. Patient remains on cefazolin. Home care arrangements have been set up for home IV antibiotics, awaiting [facility] approval and set up for wound VAC at home. Physical exam: Vital signs reviewed and stable. General: Nontoxic, no distress and appears stated age. Derm: Skin warm and dry, normal coloration for ethnicity. Right elbow open wound with packing in place surrounding erythema and drainage. Dressing in place. Head: Atraumatic, normocephalic and symmetric. Eyes: EOMs intact, no lid lag, and anicteric sclera Mouth: no lip lesions, mucus membranes moist Cardiovascular: regular rate and rhythm with normal S1S2, no murmur, positive posterior tibial pulses bilaterally, and cap refill < 2 seconds. Lungs: Respirations even, regular, and unlabored on room air. Lungs CTA bilaterally, no rhonchi, no rales, no wheezing, and no accessory muscle usage. Abdominal: soft, nontender to palpation, no guarding, no appreciable organomegaly Ext: ROM intact. No gross muscle atrophy, no edema, no contractures Neuro: Speech clear, face symmetrical and CN II-XII grossly intact with no noted focal neuro deficits Psych: Alert and oriented to person, place, time, and situation. Appropriate and pleasant affect. Assessment and Plan of Care: Infectious olecranon bursitis of right elbow status post I&D with delayed wound healing -Pt was previously diagnosed with infectious bursitis and underwent a surgical I&D, triceps repair and drain placement on 09/16/[address] Browning. -Patient has a history of MRSA with recent wound cultures obtained on 09/16/20 resulting positive for Staphylococcus aureus. -Repeat wound cultures completed upon arrival to Hospital on 09/30/20 showing a preliminary report of presumptive staph aureus, awaiting final results and sensitivity report. -Blood cultures showing no growth after 48 hours. -Continue IV antibiotics with cefazolin as recommended by infectious disease pending further results. -Pain management and symptomatic care. -Hold methotrexate while treating acute infection. Rheumatoid arthritis -Hold methotrexate at this time while acute infection is being treated. -Pain management and symptomatic care to be provided. -Patient to be provided with assistance as needed. Hyperlipidemia Continue daily medication regimen with atorvastatin 20 mg nightly. Thank you for allowing us to participate in the care of this pleasant patient. Do not hesitate to contact us with questions. Someone can be reached from the [facility] hospitalist group all hours of the day at [phone] or via [employer]. Objective - Vital Signs Vital signs: Vital Signs Temp 97.9 F 10/03/20 08:00 Pulse 75 10/03/20 08:00 Resp 18 10/03/20 08:00 BP 150/82 10/03/20 08:00 Pulse Ox 94 L 10/03/20 08:00 Intake & Output 10/02/20 10/03/20 10/03/20 18:59 06:59 18:59 Other: Voiding Method Toilet # Voids 3 1 # Bowel Movements 1 - Labs CBC & Chem 7: 10/03/20 06:36 10/03/20 06:36 Labs: Abnormal Lab Results - Last 24 Hours (Table) 10/03/20 10/03/20 Range/Units 06:36 06:36 RBC 3.40 L (4.40-5.60) X 10*6/uL Hgb 10.7 L (13.0-17.0) g/dL Hct 33.8 L (39.6-50.0) % MCV 99.4 H (80.0-97.0) fL MCHC 31.7 L (32.0-37.0) g/dL RDW 15.9 H (11.5-14.5) % Glucose 116 H (74-99) mg/dL Microbiology - Last 24 Hours (Table) 09/30/20 22:00 Blood Culture - Preliminary Blood No Growth after 48 hours 09/30/20 21:45 Blood Culture - Preliminary Blood No Growth after 48 hours 09/30/20 21:38 Gram Stain - Preliminary Elbow - Right Wound Culture - Preliminary Presumptive Staph aureus <Megan Lamar - Last Filed: 10/03/20 19:00> Subjective Patient seen and examined independently. Patient was also seen by Ethan Spicer NP and case was discussed. I am in agreement with subjective, physical exam, assessment and plan as written above and amended below. Denies any pain, slight nausea with no vomiting, no diarrhea. General: non toxic, no distress, appears at stated age Derm: warm, dry Head: atraumatic, normocephalic, symmetric Eyes: EOMI, no lid lag, anicteric sclera Mouth: no lip lesion, mucus membranes moist Cardiovascular: S1S2 reg, no murmur, positive posterior tibial pulse bilateral, Lungs: CTA bilateral, no rhonchi, no rales , no accessory muscle use Abdominal: soft, nontender to palpation, no guarding, no appreciable organomegaly Ext: no gross muscle atrophy, no edema, no contractures, wound VAC in place over right elbow Neuro: CN II-XI grossly intact, no focal neuro deficits Psych: Alert, oriented, appropriate affect Currently [facility] for IV antibiotics as well as wound VAC. Objective - Vital Signs Vital signs: Vital Signs Temp 99.4 F 10/03/20 14:44 Pulse 78 10/03/20 14:44 Resp 18 10/03/20 14:44 BP 128/74 10/03/20 14:44 Pulse Ox 95 10/03/20 14:44 Intake & Output 10/02/20 10/03/20 10/03/20 18:59 06:59 18:59 Other: Voiding Method Toilet Toilet # Voids 3 1 2 # Bowel Movements 1 - Labs CBC & Chem 7: 10/03/20 06:36 10/03/20 06:36 Labs: Abnormal Lab Results - Last 24 Hours (Table) 10/03/20 10/03/20 Range/Units 06:36 06:36 RBC 3.40 L (4.40-5.60) X 10*6/uL Hgb 10.7 L (13.0-17.0) g/dL Hct 33.8 L (39.6-50.0) % MCV 99.4 H (80.0-97.0) fL MCHC 31.7 L (32.0-37.0) g/dL RDW 15.9 H (11.5-14.5) % Glucose 116 H (74-99) mg/dL Microbiology - Last 24 Hours (Table) 09/30/20 21:38 Gram Stain - Final Elbow - Right Wound Culture - Final Staphylococcus aureus 09/30/20 22:00 Blood Culture - Preliminary Blood No Growth after 48 hours 09/30/20 21:45 Blood Culture - Preliminary Blood No Growth after 48 hours
--- NOTE | 2020-10-03 16:00 | PN ---
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 INTERVAL HISTORY: The patient is currently afebrile. The patient is breathing comfortably. Overall pain and discomfort to the elbow has slightly decreased. No chest pain, shortness of breath or cough. No abdominal pain or diarrhea. PHYSICAL EXAMINATION: Blood pressure 150/82 with a pulse of 75, temperature 97.9. He is 94% on room air. GENERAL DESCRIPTION: General description is an elderly male lying in bed in no distress. RESPIRATORY SYSTEM: Unlabored breathing. Clear to auscultation anteriorly. HEART: S1, S2. Regular rate and rhythm. ABDOMEN: Soft. No tenderness. Right elbow is currently covered with a wound V.A.C. LABS: Hemoglobin is 10.7, white count 5.63. Blood culture has been negative. DIAGNOSTIC IMPRESSION AND PLAN: Patient with a right elbow wound infection with concern for underlying osteomyelitis on the basis of the x-ray. Patient responded to the cefazolin and the wound V.A.C. Once outpatient antibiotic is arranged, he is cleared to go home from ID standpoint with close outpatient followup. MMODL / IJN: [id number] /
[2020-10-03] MEDS: ATORVASTATIN 20 MG TAB PO SCH (20:10)
[2020-10-04] MEDS: HEPARIN SODIUM,PORCINE/PF 5,000 UNIT/0.5 ML SYRINGE SQ SCH ×4 (00:02→23:40)
[2020-10-04] MEDS: HYDROcodone/APAP 5-325MG 1 EACH TAB PO PRN (00:04)
[2020-10-04] MEDS: CHOLECALCIFEROL 25 MCG (1000 IU) TABLET PO SCH (09:08)
[2020-10-04] MEDS: FOLIC ACID 1 MG TAB PO SCH (09:08)
[2020-10-04] MEDS: SODIUM CHLORIDE 0.9% 1,000 ML IV SCH ×2 (09:08→23:35)
--- NOTE | 2020-10-04 11:46 | P.PN ---
Subjective Progress Note Date: 10/04/20 Principal diagnosis: Infection right elbow. This is a pleasant 70-year-old male who we have been following in our office for problems with his right elbow. He had developed infection to the right elbow olecranon bursa and had an opening with draining. He was taken to the OR on 09/16/2020 for I&D of the elbow along with triceps repair. The patient was seen for his postop evaluation on 09/30/2020 and was noted to have significant drainage and a large opening to the elbow. He was on antibiotics which she finished 2 days prior. Patient has history of rheumatoid arthritis and is on and immunosuppressive-type medication for his arthritis. He is not sure of the name of his medication. He is a patient of Dr. Gómez. The intraoperative cultures showed methicillin sensitive staph aureus. He is admitted for service for IV antibiotics and infectious disease and wound care evaluation. 10/02/2020: The patient has been seen by infectious disease. Repeat cultures were taken which are pending. Blood cultures are showing no growth at 24 hours. Elbow x-ray shows questionable erosion at the olecranon versus postsurgical changes from the triceps repair. The patient is afebrile. No new complaints or concerns today. 10/04/2020: The patient is doing well today. Wound VAC is in place. PICC line has been inserted. He is afebrile. He has no new complaints or concerns today. He is anxiously awaiting discharge. Objective - Vital Signs Vital signs: Vital Signs Temp 97.6 F 10/04/20 07:18 Pulse 58 L 10/04/20 07:18 Resp 18 10/04/20 07:18 BP 135/63 10/04/20 07:18 Pulse Ox 95 10/04/20 07:18 Intake & Output 10/03/20 10/04/20 10/04/20 18:59 06:59 18:59 Other: Voiding Method Toilet Toilet # Voids 2 3 - Exam this is a pleasant 70-year-old male in no acute distress. Wound VAC is in place. He has fairly good range of motion of the elbow. Full wrist and finger motion. Neurovascular status to the upper extremity is intact. - Labs CBC & Chem 7: 10/03/20 06:36 10/03/20 06:36 Labs: Microbiology - Last 24 Hours (Table) 09/30/20 22:00 Blood Culture - Preliminary Blood No Growth after 72 hours 09/30/20 21:45 Blood Culture - Preliminary Blood No Growth after 72 hours 09/30/20 21:38 Gram Stain - Final Elbow - Right Wound Culture - Final Staphylococcus aureus Assessment and Plan (1) Infection of right elbow Current Visit: Yes Status: Acute Code(s): M00.9 - PYOGENIC ARTHRITIS, UNSPECIFIED SNOMED Code(s): 046012443 (2) Septic bursitis Current Visit: Yes Status: Acute Code(s): M71.10 - OTHER INFECTIVE BURSITIS, UNSPECIFIED SITE SNOMED Code(s): 242276320 Plan: The clinical findings are discussed with the patient. He may be discharged from an orthopedic standpoint. He is awaiting wound VAC for home and IV antibiotic arrangements for home.
[2020-10-04] MEDS: NAPROXEN 250 MG TAB PO SCH ×2 (11:57→23:17)
--- NOTE | 2020-10-04 13:03 | P.PN ---
<Ethan Spicer - Last Filed: 10/04/20 12:58> Subjective Progress Note Date: 10/04/20 Hospital course Patient is a 70-year-old male with a past medical history of hyperlipidemia and rheumatoid arthritis. He was recently diagnosed with infectious bursitis and underwent a surgical I&D, triceps repair and drain placement on 09/16/[address] Browning. Patient reports that the drain was removed a few days later by his orthopedic surgeon and he has since been having continued purulent drainage from this open wound. Patient is currently admitted under orthopedic surgery team under Dr. Browning. We have been consulted for continued close medical management throughout his hospital stay. Infectious disease also following and has placed patient on cefazolin 2 g every 8 hours. X-ray right elbow revealing erosion to the olecranon process unable to rule out osteomyelitis. Patient has a history of MRSA with recent wound cultures obtained on 09/16/20 resulting positive for Staphylococcus aureus. Blood cultures showing no growth after 24 hours. Preliminary wound cultures of right elbow positive for presumptive staph aureus, awaiting finalization with sensitivity report. Patient remains on cefazolin at this time pending these results. 10/02/20: Patient was seen and fully evaluated at the bedside. He was sitting up in the chair. Dressing with packing remains to right elbow. Dressing is currently clean dry and intact. Preliminary cultures of right elbow resulting presumptive for staph aureus. Blood cultures showing no growth after 24 hours. Patient remains on IV antibiotics cefazolin pending further results. Patient reports right elbow pain currently controlled and denies having any further needs or concerns at this time including chills, diaphoresis, headache, lightheadedness, dizziness, chest pain, palpitations, shortness of breath, or experiencing any numbness/tingling/weakness in his extremities. Patient being taken down for PICC line placement this morning for needed home IV antibiotics. Orthopedic specialists recommending possible wound VAC application. 10/03/20: Patient seen and fully evaluated at bedside this morning. He was sitting up in the bed. He reports feeling great today and denies having any needs or concerns. He reports the pain to his right elbow is currently controlled and he denies experiencing any numbness/tingling/weakness. Wound VAC is in place to right elbow. Labs reviewed, CBC revealing macrocytic normochromic anemia with hemoglobin 10.7, hematocrit 33.8, MCV 99.4, MCH 31.5, MCHC 31.7, and RDW of 15.9. Wound culture showing presumptive staph aureus awaiting sensitivity report. Blood culture showing no growth after 48 hours. Patient remains on cefazolin. Home care arrangements have been set up for home IV antibiotics, awaiting [facility] approval and set up for wound VAC at home. 10/04/20: Patient seen and fully evaluated at bedside this morning. He was ambulatory in room, he denies having any current needs at this time. He reports pain is currently controlled and his right elbow. Wound VAC remains in place. Wound culture was positive for Staphylococcus aureus, we will continue IV antibiotics with cefazolin at this time. Blood cultures show no growth after 72 hours. Vital signs stable. Patient denies any other complaints or concerns at this time including headache, lightheadedness, dizziness, chest pain, palpitations, shortness of breath, or experiencing any numbness/tingling in his extremities. Patient does report mild cramping in the joints of his hands due to RA and requesting methotrexate, informed methotrexate being held at this time while treatment of infection. Additional orders placed for naproxen at this time per patient's request. Physical exam: Vital signs reviewed and stable. General: Nontoxic, no distress and appears stated age. Derm: Skin warm and dry, normal coloration for ethnicity. Wound VAC in place to right elbow. Head: Atraumatic, normocephalic and symmetric. Eyes: EOMs intact, no lid lag, and anicteric sclera Mouth: no lip lesions, mucus membranes moist Cardiovascular: regular rate and rhythm with normal S1S2, no murmur, positive posterior tibial pulses bilaterally, and cap refill < 2 seconds. Lungs: Respirations even, regular, and unlabored on room air. Lungs CTA bilaterally, no rhonchi, no rales, no wheezing, and no accessory muscle usage. Abdominal: soft, nontender to palpation, no guarding, no appreciable organomegaly Ext: ROM intact. No gross muscle atrophy, no edema, no contractures Neuro: Speech clear, face symmetrical and CN II-XII grossly intact with no noted focal neuro deficits Psych: Alert and oriented to person, place, time, and situation. Appropriate and pleasant affect. Assessment and Plan of Care: Infectious olecranon bursitis of right elbow status post I&D with delayed wound healing -Pt was previously diagnosed with infectious bursitis and underwent a surgical I&D, triceps repair and drain placement on 09/16/[address] Browning. -Patient has a history of MRSA with recent wound cultures obtained on 09/16/20 resulting positive for Staphylococcus aureus. -Repeat wound cultures completed upon arrival to Hospital on 09/30/20 showing positive for Staphylococcus aureus. -Blood cultures showing no growth after 72 hours -Continue IV antibiotics with cefazolin as recommended by infectious disease pending further results. -Pain management and symptomatic care. -Hold methotrexate while treating acute infection. Rheumatoid arthritis -Hold methotrexate at this time while acute infection is being treated. -Pain management and symptomatic care to be provided. -Patient to be provided with assistance as needed. Hyperlipidemia Continue daily medication regimen with atorvastatin 20 mg nightly. Thank you for allowing us to participate in the care of this pleasant patient. Do not hesitate to contact us with questions. Someone can be reached from the [facility] hospitalist group all hours of the day at [phone] or via [email or web address]. Objective - Vital Signs Vital signs: Vital Signs Temp 97.6 F 10/04/20 07:18 Pulse 58 L 10/04/20 07:18 Resp 18 10/04/20 07:18 BP 135/63 10/04/20 07:18 Pulse Ox 95 10/04/20 07:18 Intake & Output 10/03/20 10/04/20 10/04/20 18:59 06:59 18:59 Other: Voiding Method Toilet Toilet # Voids 2 3 - Labs CBC & Chem 7: 10/03/20 06:36 10/03/20 06:36 Labs: Abnormal Lab Results - Last 24 Hours (Table) 10/04/20 Range/Units 05:28 ESR 54 H (0-20) mm/Hr Microbiology - Last 24 Hours (Table) 09/30/20 22:00 Blood Culture - Preliminary Blood No Growth after 72 hours 09/30/20 21:45 Blood Culture - Preliminary Blood No Growth after 72 hours 09/30/20 21:38 Gram Stain - Final Elbow - Right Wound Culture - Final Staphylococcus aureus <Megan Lamar - Last Filed: 10/04/20 18:47> Subjective Patient seen and examined independently. Patient was also seen by Ethan Nayan, STABILIZING MACHINE OPERATOR and case was discussed. I am in agreement with subjective, physical exam, assessment and plan as written above and amended below. Pain is well controlled, no nausea, no diarrhea. General: non toxic, no distress, appears at stated age Derm: warm, dry, dressing in place with wound VAC over right elbow Head: atraumatic, normocephalic, symmetric Eyes: EOMI, no lid lag, anicteric sclera Mouth: no lip lesion, mucus membranes moist Cardiovascular: S1S2 reg, no murmur, positive posterior tibial pulse bilateral, Lungs: CTA bilateral, no rhonchi, no rales , no accessory muscle use Abdominal: soft, nontender to palpation, no guarding, no appreciable organomega ly Ext: no gross muscle atrophy, no edema, no contractures Neuro: CN II-XI grossly intact, no focal neuro deficits Psych: Alert, oriented, appropriate affect Objective - Vital Signs Vital signs: Vital Signs Temp 98.2 F 10/04/20 13:51 Pulse 81 10/04/20 13:51 Resp 17 10/04/20 13:51 BP 135/71 10/04/20 13:51 Pulse Ox 95 10/04/20 13:51 Intake & Output 10/03/20 10/04/20 10/04/20 18:59 06:59 18:59 Other: Voiding Method Toilet Toilet # Voids 2 3 3 - Labs CBC & Chem 7: 10/03/20 06:36 10/03/20 06:36 Labs: Abnormal Lab Results - Last 24 Hours (Table) 10/04/20 Range/Units 05:28 ESR 54 H (0-20) mm/Hr Microbiology - Last 24 Hours (Table) 09/30/20 22:00 Blood Culture - Preliminary Blood No Growth after 72 hours 09/30/20 21:45 Blood Culture - Preliminary Blood No Growth after 72 hours
--- NOTE | 2020-10-04 17:24 | PN ---
PROGRESS NOTE DATE OF SERVICE: 10/04/2020 REASON FOR FOLLOWUP: Right elbow wound infection with concern for underlying osteomyelitis, acute MSSA. INTERVAL HISTORY: The patient is afebrile. The patient is currently feeling better, breathing comfortably. Overall pain and discomfort to the right elbow have decreased. No chest pain, shortness of breath or cough. No abdominal pain or diarrhea. PHYSICAL EXAMINATION: Blood pressure 135/71, pulse of 81, temperature 98.2. He is 95% on room air. GENERAL DESCRIPTION: General description is an elderly male up in the bed in no distress. HEENT EXAMINATION: No pallor or scleral icterus. Oral mucosa is dry. LUNGS: Unlabored breathing. Clear to auscultation anteriorly. HEART: S1, S2. Regular rate and rhythm. ABDOMEN: Soft. No tenderness. Right elbow is currently covered with a wound V.A.C. LABS: 54. CRP 0.8. DIAGNOSTIC IMPRESSION AND PLAN: Patient with right elbow olecranon bursitis, status post debridement, now with evidence of olecranon osteomyelitis. Culture with MSSA. Patient is covered with cefazolin 2 grams q.8 hours. Plan is for cefazolin 2 grams q.8 hours for a total of 6 weeks. Local wound care with wound V.A.C. and close outpatient followup. Prescription provided to the patient. MMODL / IJN: [id number] /
[2020-10-04] MEDS ORDERED: MAGNESIUM HYDROXIDE 2,400 MG/10 ML CUP PO PRN (22:42)
[2020-10-04] MEDS: ATORVASTATIN 20 MG TAB PO SCH (23:17)
[2020-10-05] MEDS: NAPROXEN 250 MG TAB PO SCH ×2 (08:38→20:15)
[2020-10-05] MEDS: HEPARIN SODIUM,PORCINE/PF 5,000 UNIT/0.5 ML SYRINGE SQ SCH ×2 (08:38→16:33)
[2020-10-05] MEDS: CHOLECALCIFEROL 25 MCG (1000 IU) TABLET PO SCH (08:39)
[2020-10-05] MEDS: FOLIC ACID 1 MG TAB PO SCH (08:39)
[2020-10-05] MEDS: SODIUM CHLORIDE 0.9% 1,000 ML IV SCH (10:11)
--- NOTE | 2020-10-05 10:33 | P.PN ---
<Ethan Spicer - Last Filed: 10/05/20 10:17> Subjective Progress Note Date: 10/05/20 Hospital course Patient is a 70-year-old male with a past medical history of hyperlipidemia and rheumatoid arthritis. He was recently diagnosed with infectious bursitis and underwent a surgical I&D, triceps repair and drain placement on 09/16/[address] Browning. Patient reports that the drain was removed a few days later by his orthopedic surgeon and he has since been having continued purulent drainage from this open wound. Patient is currently admitted under orthopedic surgery team under Dr. Browning. We have been consulted for continued close medical management throughout his hospital stay. Infectious disease also following and has placed patient on cefazolin 2 g every 8 hours. X-ray right elbow revealing erosion to the olecranon process unable to rule out osteomyelitis. Patient has a history of MRSA with recent wound cultures obtained on 09/16/20 resulting positive for Staphylococcus aureus. Blood cultures showing no growth after 24 hours. Preliminary wound cultures of right elbow positive for presumptive staph aureus, awaiting finalization with sensitivity report. Patient remains on cefazolin at this time pending these results. 10/02/20: Patient was seen and fully evaluated at the bedside. He was sitting up in the chair. Dressing with packing remains to right elbow. Dressing is currently clean dry and intact. Preliminary cultures of right elbow resulting presumptive for staph aureus. Blood cultures showing no growth after 24 hours. Patient remains on IV antibiotics cefazolin pending further results. Patient reports right elbow pain currently controlled and denies having any further needs or concerns at this time including chills, diaphoresis, headache, lightheadedness, dizziness, chest pain, palpitations, shortness of breath, or experiencing any numbness/tingling/weakness in his extremities. Patient being taken down for PICC line placement this morning for needed home IV antibiotics. Orthopedic specialists recommending possible wound VAC application. 10/03/20: Patient seen and fully evaluated at bedside this morning. He was sitting up in the bed. He reports feeling great today and denies having any needs or concerns. He reports the pain to his right elbow is currently controlled and he denies experiencing any numbness/tingling/weakness. Wound VAC is in place to right elbow. Labs reviewed, CBC revealing macrocytic normochromic anemia with hemoglobin 10.7, hematocrit 33.8, MCV 99.4, MCH 31.5, MCHC 31.7, and RDW of 15.9. Wound culture showing presumptive staph aureus awaiting sensitivity report. Blood culture showing no growth after 48 hours. Patient remains on cefazolin. Home care arrangements have been set up for home IV antibiotics, awaiting [facility] approval and set up for wound VAC at home. 10/04/20: Patient seen and fully evaluated at bedside this morning. He was ambulatory in room, he denies having any current needs at this time. He reports pain is currently controlled and his right elbow. Wound VAC remains in place. Wound culture was positive for Staphylococcus aureus, we will continue IV a ntibiotics with cefazolin at this time. Blood cultures show no growth after 72 hours. Vital signs stable. Patient denies any other complaints or concerns at this time including headache, lightheadedness, dizziness, chest pain, palpitations, shortness of breath, or experiencing any numbness/tingling in his extremities. Patient does report mild cramping in the joints of his hands due to RA and requesting methotrexate, informed methotrexate being held at this time while treatment of infection. Additional orders placed for naproxen at this time per patient's request. 10/05/20: Patient seen and fully evaluated at bedside again this morning. He continues to deny having any needs or complaints. Wound VAC remains in place. Patient awaiting [facility] authorization for wound VAC at home, once authorization received, plan for discharge home with wound VAC and IV antibiotics. Patient's vitals stable. He denies having any headache, lightheadedness, dizziness, chest pain, palpitations, shortness of breath, or experiencing any numbness/tingling/weakness in his extremities. Will discuss with infectious disease length of time patient needs to remain off of methotrexate. Physical exam: Vital signs reviewed and stable. General: Nontoxic, no distress and appears stated age. Derm: Skin warm and dry, normal coloration for ethnicity. Wound VAC in place to right elbow. Head: Atraumatic, normocephalic and symmetric. Eyes: EOMs intact, no lid lag, and anicteric sclera Mouth: no lip lesions, mucus membranes moist Cardiovascular: regular rate and rhythm with normal S1S2, no murmur, positive posterior tibial pulses bilaterally, and cap refill < 2 seconds. Lungs: Respirations even, regular, and unlabored on room air. Lungs CTA bilaterally, no rhonchi, no rales, no wheezing, and no accessory muscle usage. Abdominal: soft, nontender to palpation, no guarding, no appreciable organomegaly Ext: ROM intact. No gross muscle atrophy, no edema, no contractures Neuro: Speech clear, face symmetrical and CN II-XII grossly intact with no noted focal neuro deficits Psych: Alert and oriented to person, place, time, and situation. Appropriate and pleasant affect. Assessment and Plan of Care: Infectious olecranon bursitis of right elbow status post I&D with delayed wound healing -Pt was previously diagnosed with infectious bursitis and underwent a surgical I&D, triceps repair and drain placement on 09/16/[address] Browning. -Patient has a history of MRSA with recent wound cultures obtained on 09/16/20 resulting positive for Staphylococcus aureus. -Repeat wound cultures completed upon arrival to Hospital on 09/30/20 showing positive for Staphylococcus aureus. -Blood cultures showing no growth after 96 hours -Continue IV antibiotics with cefazolin as recommended by infectious disease pending further results. -Pain management and symptomatic care. -Hold methotrexate while treating acute infection. Rheumatoid arthritis -Hold methotrexate at this time while acute infection is being treated. -Pain management and symptomatic care to be provided. -Patient to be provided with assistance as needed. Hyperlipidemia Continue daily medication regimen with atorvastatin 20 mg nightly. Thank you for allowing us to participate in the care of this pleasant patient. Do not hesitate to contact us with questions. Someone can be reached from the [facility] hospitalist group all hours of the day at [phone] or via [employer]. Objective - Vital Signs Vital signs: Vital Signs Temp 97.9 F 10/05/20 07:45 Pulse 73 10/05/20 07:45 Resp 16 10/05/20 07:45 BP 127/64 10/05/20 07:45 Pulse Ox 97 10/05/20 07:45 Intake & Output 10/04/20 10/05/20 10/05/20 18:59 06:59 18:59 Other: Voiding Method Toilet # Voids 3 2 - Labs CBC & Chem 7: 10/03/20 06:36 10/03/20 06:36 Labs: Abnormal Lab Results - Last 24 Hours (Table) 10/04/20 Range/Units 05:28 ESR 54 H (0-20) mm/Hr Microbiology - Last 24 Hours (Table) 09/30/20 22:00 Blood Culture - Preliminary Blood No Growth after 96 hours 09/30/20 21:45 Blood Culture - Preliminary Blood No Growth after 96 hours <Jose Guadalupe Locke - Last Filed: 10/05/20 16:01> Objective - Vital Signs Vital signs: Vital Signs Temp 97.9 F 10/05/20 14:00 Pulse 90 10/05/20 14:00 Resp 18 10/05/20 14:00 BP 150/80 10/05/20 14:00 Pulse Ox 96 10/05/20 14:00 Intake & Output 10/04/20 10/05/20 10/05/20 18:59 06:59 18:59 Other: Voiding Method Toilet # Voids 3 2 - Labs CBC & Chem 7: 10/03/20 06:36 10/03/20 06:36 Labs: Microbiology - Last 24 Hours (Table) 09/30/20 22:00 Blood Culture - Preliminary Blood No Growth after 96 hours 09/30/20 21:45 Blood Culture - Preliminary Blood No Growth after 96 hours Assessment and Plan Assessment: I reviewed the documentation as provided by the EDWIN above, who is the original author of this note. I agree with the documented assessment and plan, with the following changes:none
--- NOTE | 2020-10-05 11:07 | P.DS ---
Providers Date of admission: 09/30/20 22:38 Expected date of discharge: 10/05/20 Attending physician: Aj Browning Consults: 09/30/20 22:57 Consult Physician Routine Consulting Provider: Jenny Tristan Consult Reason/Comments: Surgical site infection; osteomyelitis Do you want consulting provider notified?: Yes 10/01/20 09:37 Consult Physician Routine Consulting Provider: Megan Lamar Consult Reason/Comments: medical management Do you want consulting provider notified?: Yes Primary care physician: [facility] - Discharge Diagnosis(es) (1) Infection of right elbow Current Visit: Yes Status: Acute (2) Septic bursitis Current Visit: Yes Status: Acute Hospital Course: This is a pleasant 70-year-old male who we have been following in our office for problems with his right elbow. He had developed infection to the right elbow olecranon bursa and had an opening with draining. He was taken to the OR on 09/16/2020 for I&D of the elbow along with triceps repair. The patient was seen for his. Evaluation on 09/30/2020 and was noted to have significant drainage and a large opening to the elbow. He was on antibiotics which she finished 2 days prior. Patient has history of rheumatoid arthritis and is on and i mmunosuppressive-type medication for his arthritis. He is not sure of the name of his medication. He is a patient of Dr. Gómez. The intraoperative cultures showed methicillin sensitive staph aureus. He is admitted for service for IV antibiotics and infectious disease and wound care evaluation. the patient was seen and evaluated by infectious disease. A wound VAC was placed to the right elbow. He will be discharged to home on IV Kefzol. Patient Condition at Discharge: Serious Plan - Discharge Summary New Discharge Prescriptions: New ceFAZolin [Kefzol] 2 gm IVP Q8HR #120 vial HYDROcodone/APAP 5-325MG [[place] 5] 1 each PO Q6HR PRN #28 tab PRN Reason: Pain No Action Cholecalciferol [Vitamin D3 (25 Mcg = 1000 Iu)] 25 mcg PO DAILY Simvastatin [Zocor] 40 mg PO HS Albuterol Sulfate [Albuterol Sulfate Hfa] 1 puff PO RT-Q6H PRN PRN Reason: Shortness Of Breath Folic Acid 1 mg PO DAILY metHOTREXate sodium [Methotrexate] 12.5 mg PO Q7D Naproxen [Naprosyn] 500 mg PO Q12HR PRN PRN Reason: Pain Discharge Medication List Albuterol Sulfate [Albuterol Sulfate Hfa] 1 puff PO RT-Q6H PRN 10/01/20 [History] Cholecalciferol [Vitamin D3 (25 Mcg = 1000 Iu)] 25 mcg PO DAILY 10/01/20 [History] Folic Acid 1 mg PO DAILY 10/01/20 [History] Naproxen [Naprosyn] 500 mg PO Q12HR PRN 10/01/20 [History] Simvastatin [Zocor] 40 mg PO HS 10/01/20 [History] metHOTREXate sodium [Methotrexate] 12.5 mg PO Q7D 10/01/20 [History] HYDROcodone/APAP 5-325MG [[place] 5] 1 each PO Q6HR PRN #28 tab 10/03/20 [Rx] ceFAZolin [Kefzol] 2 gm IVP Q8HR #120 vial 10/04/20 [Rx] Follow up Appointment(s)/Referral(s): Aj Browning MD [STAFF PHYSICIAN] - 10/26/20 10:00 am Jenny Tristan MD [STAFF PHYSICIAN] - 10/14/20 9:30 am (PLEASE ARRIVE TO APPOINTMENT AT 9:15AM Appointment will be at [address] [place], [place] [id number] ) [facility],Clinic [Primary Care Provider] - 1-2 days Ambulatory/Diagnostic Orders: Basic Metabolic Panel [LAB.AMB] Location: None Selected C Reactive Protein [LAB.AMB] Location: None Selected Complete Blood Count w/diff [LAB.AMB] Location: None Selected Erythrocyte Sedimentation Rate [LAB.AMB] Location: None Selected Activity/Diet/Wound Care/Special Instructions: [employer] will supply the wound vac. Please call [phone] if you have questions regarding your wound vac. Wound care to the right elbow with a wound VAC black foam continuous pressure 1 25 mmHg, changed Monday Follow-up with Dr. Tristan in the wound care center next week, call [phone] to make an appointment Discharge Disposition: HOME WITH HOME HEALTH SERVICES
--- NOTE | 2020-10-05 13:30 | PN ---
PROGRESS NOTE DATE OF SERVICE: 10/05/2020 REASON FOR FOLLOWUP: Right elbow wound infection with underlying osteomyelitis. INTERVAL HISTORY: Patient is afebrile. The patient is feeling better. Breathing comfortably. No chest pain, shortness of breath, cough, abdominal pain or pain to the right elbow area. PHYSICAL EXAMINATION: Blood pressure 127/64, pulse of 73, temperature 97.9. He is 97% on room air. General description is an elderly male lying in bed in no distress. Respiratory system: Unlabored breathing, clear to auscultation anteriorly. Heart S1, S2. Regular rate and rhythm. Abdomen soft, no tenderness. Right elbow is currently covered with wound VAC. No drainage. LABS: No new labs have been obtained today. DIAGNOSTIC IMPRESSION AND PLAN: Patient with right elbow wound infection with recent drainage of olecranon bursa with concern for osteo involving the process. Culture positive for MSSA. Plan is for 6 weeks of cefazolin 2 grams q.8 hours. Local wound care with wound VAC to follow up in the Wound Care Center next week. Questions and concerns were answered. MMODL / IJN: [id number] /
[2020-10-05] MEDS: ATORVASTATIN 20 MG TAB PO SCH (20:16)
[2020-10-06] MEDS: HEPARIN SODIUM,PORCINE/PF 5,000 UNIT/0.5 ML SYRINGE SQ SCH ×2 (00:53→08:28)
[2020-10-06] MEDS: SODIUM CHLORIDE 0.9% 1,000 ML IV SCH (00:54)
[2020-10-06 08:01] VITALS: BP 120/69; PULSE 66; RESP 16; TEMP 98.1
[2020-10-06] MEDS: CHOLECALCIFEROL 25 MCG (1000 IU) TABLET PO SCH (08:27)
[2020-10-06] MEDS: FOLIC ACID 1 MG TAB PO SCH (08:27)
[2020-10-06] MEDS: NAPROXEN 250 MG TAB PO SCH (08:28)
--- NOTE | 2020-10-06 09:38 | P.DS ---
Providers Date of admission: 09/30/20 22:38 Expected date of discharge: 10/06/20 Attending physician: Aj Browning Consults: 09/30/20 22:57 Consult Physician Routine Consulting Provider: Jenny Tristan Consult Reason/Comments: Surgical site infection; osteomyelitis Do you want consulting provider notified?: Yes 10/01/20 09:37 Consult Physician Routine Consulting Provider: Megan Lamar Consult Reason/Comments: medical management Do you want consulting provider notified?: Yes Primary care physician: [facility] Clinic - Discharge Diagnosis(es) (1) Infection of right elbow Current Visit: Yes Status: Acute Hospital Course: This is a 70-year-old male who is admitted for infection of the right elbow olecranon bursa. Patient underwent I&D of the right elbow along with triceps repair on 09/16/2020. Patient subsequently developed an open draining wound and was admitted for IV antibiotics and wound care. Infectious disease is managing wound care and IV antibiotics. Patient has a wound VAC to the right elbow. Planning for discharge home later today on IV antibiotics. Patient was discharged yesterday, but this was postponed due to pending authorization for in-home IV antibiotics. On day of discharge the patient is doing well. Wound VAC is intact to the right elbow. There is minimal erythema. Sensation intact. Neurovascular status and circulatory status are intact. Patient is discharged home in good condition. Patient Condition at Discharge: Serious Plan - Discharge Summary New Discharge Prescriptions: New ceFAZolin [Kefzol] 2 gm IVP Q8HR #120 vial HYDROcodone/APAP 5-325MG [[place] 5] 1 each PO Q6HR PRN #28 tab PRN Reason: Pain No Action Cholecalciferol [Vitamin D3 (25 Mcg = 1000 Iu)] 25 mcg PO DAILY Simvastatin [Zocor] 40 mg PO HS Albuterol Sulfate [Albuterol Sulfate Hfa] 1 puff PO RT-Q6H PRN PRN Reason: Shortness Of Breath Folic Acid 1 mg PO DAILY metHOTREXate sodium [Methotrexate] 12.5 mg PO Q7D Naproxen [Naprosyn] 500 mg PO Q12HR PRN PRN Reason: Pain Discharge Medication List Albuterol Sulfate [Albuterol Sulfate Hfa] 1 puff PO RT-Q6H PRN 10/01/20 [History] Cholecalciferol [Vitamin D3 (25 Mcg = 1000 Iu)] 25 mcg PO DAILY 10/01/20 [History] Folic Acid 1 mg PO DAILY 10/01/20 [History] Naproxen [Naprosyn] 500 mg PO Q12HR PRN 10/01/20 [History] Simvastatin [Zocor] 40 mg PO HS 10/01/20 [History] metHOTREXate sodium [Methotrexate] 12.5 mg PO Q7D 10/01/20 [History] HYDROcodone/APAP 5-325MG [[place] 5] 1 each PO Q6HR PRN #28 tab 10/03/20 [Rx] ceFAZolin [Kefzol] 2 gm IVP Q8HR #120 vial 10/04/20 [Rx] Follow up Appointment(s[facility] Week Aj Browning MD [STAFF PHYSICIAN] - 10/26/20 10:00 am Jenny Tristan MD [STAFF PHYSICIAN] - 10/14/20 9:30 am (PLEASE ARRIVE TO APPOINTMENT AT 9:15AM Appointment will be at [address] [place], [place] [phone] ) [facility] [Primary Care Provider] - 1-2 days Ambulatory/Diagnostic Orders: Basic Metabolic Panel [LAB.AMB] Location: None Selected C Reactive Protein [LAB.AMB] Location: None Selected Complete Blood Count w/diff [LAB.AMB] Location: None Selected Erythrocyte Sedimentation Rate [LAB.AMB] Location: None Selected Activity/Diet/Wound Care/Special Instructions: [employer] will supply the wound vac. Please call [phone] if you have questions regarding your wound vac. Wound care to the right elbow with a wound VAC black foam continuous pressure 1 25 mmHg, changed Monday Follow-up with Dr. Tristan in the wound care center next week, call [phone] to make an appointment Discharge Disposition: HOME WITH HOME HEALTH SERVICES
[2020-10-06 13:25] VITALS: BMI 25.4
--- NOTE | 2020-10-06 13:26 | P.PN ---
Subjective Patient was seen and evaluated by me this morning. He is the fourth to be discharged today. Home infusion was set up. He is getting his dose of a ntibiotic around 4 PM this afternoon and will be discharged. Objective - Vital Signs Vital signs: Vital Signs Temp 98.1 F 10/06/20 08:00 Pulse 66 10/06/20 08:00 Resp 16 10/06/20 08:00 BP 120/69 10/06/20 08:00 Pulse Ox 96 10/06/20 08:00 Intake & Output 10/05/20 10/06/20 10/06/20 18:59 06:59 18:59 Other: Voiding Method Toilet # Voids 3 2 - Exam General: The patient is awake and alert, in no distress Eye: there is normal conjunctiva bilaterally. Neck: The neck is supple, there is no JVD. Cardiovascular: Normal S1-S2, no S3-S4, no murmurs. Respiratory: Lungs clear to auscultation bilaterally Gastrointestinal: Abdomen is soft, nontender Musculoskeletal: There is no pedal edema. Neurological:. Speech is normal. Skin: Skin is warm and dry - Labs CBC & Chem 7: 10/03/20 06:36 10/03/20 06:36 Labs: Microbiology - Last 24 Hours (Table) 09/30/20 22:00 Blood Culture - Preliminary Blood No Growth after 120 hours 09/30/20 21:45 Blood Culture - Preliminary Blood No Growth after 120 hours Assessment and Plan Assessment: Patient is a 70-year-old male with a past medical history of hyperlipidemia and rheumatoid arthritis. He was recently diagnosed with infectious bursitis and underwent a surgical I&D, triceps repair and drain placement on 09/16/[address] Browning. Patient reports that the drain was removed a few days later by his orthopedic surgeon and he has since been having continued purulent drainage from this open wound. Patient is currently admitted under orthopedic surgery team under Dr. Browning. We have been consulted for continued close medical management throughout his hospital stay. Infectious disease also following and has placed patient on cefazolin 2 g every 8 hours. X-ray right elbow revealing erosion to the olecranon process unable to rule out osteomyelitis. Patient has a history of MRSA with recent wound cultures obtained on 09/16/20 resulting positive for Staphylococcus aureus. Blood cultures showing no growth after 24 hours. Preliminary wound cultures of right elbow positive for presumptive staph aureus, awaiting finalization with sensitivity report. Patient remains on cefazolin at this time pending these results. Assessment and Plan of Care: Infectious olecranon bursitis of right elbow status post I&D with delayed wound healing -Pt was previously diagnosed with infectious bursitis and underwent a surgical I&D, triceps repair and drain placement on 09/16/[address] Browning. -Patient has a history of MRSA with recent wound cultures obtained on 09/16/20 resulting positive for Staphylococcus aureus. -Repeat wound cultures completed upon arrival to Hospital on 09/30/20 showing positive for Staphylococcus aureus. -Blood cultures showing no growth after 96 hours -Continue IV antibiotics with cefazolin as recommended by infectious disease pending further results. -Pain management and symptomatic care. Rheumatoid arthritis -Resume dose of methotrexate Hyperlipidemia Continue daily medication regimen with atorvastatin 20 mg nightly.
--- NOTE | 2020-10-06 15:11 | PN ---
PROGRESS NOTE DATE OF SERVICE: 10/06/2020 REASON FOR FOLLOWUP: Right elbow MSSA infection with underlying osteomyelitis, acute MSSA. INTERVAL HISTORY: The patient is currently afebrile. The patient is feeling better, breathing comfortably. Denies having any chest pain or shortness of breath or cough. No abdominal pain or diarrhea. PHYSICAL EXAMINATION: Blood pressure 120/69, pulse of 66, temperature 98.1. He is 96% on room air. GENERAL DESCRIPTION: General description is an elderly male up in the bed in no distress. RESPIRATORY SYSTEM: Unlabored breathing. Clear to auscultation anteriorly. HEART: S1, S2. Regular rate and rhythm. ABDOMEN: Soft. No tenderness. Right elbow wound is currently covered with a wound V.A.C. LABS: No new labs have been obtained today. DIAGNOSTIC IMPRESSION AND PLAN: Patient with right elbow wound dehiscence with recent surgery for an olecranon bursitis with evidence of osteomyelitis involving the olecranon process. Culture positive for MSSA. The patient is on cefazolin 2 grams q.8 hours; to continue for a total of 6 weeks. Local wound care with a wound V.A.C. and follow up with me in the Wound Care Center next week. MMODL / IJN: [id number] /
== END 2020-10-06 16:30 | disposition home health service (06) | DRG 863 ==
LOC: EC 18:37 → 4SSUR 22:38
PROVIDERS: ADMIT Orthopaedic Surgery; ATTEND Orthopaedic Surgery
PROC: 02HV33Z Insertion of Infusion Device into Superior Vena Cava, Percutaneous Approach (ICD-10-PCS; principal; 2020-10-02 13:10)
DX: T81.41XA Infection following a procedure, superficial incisional surgical site, initial encounter (principal); T81.30XA Disruption of wound, unspecified, initial encounter; M00.9 Pyogenic arthritis, unspecified; M86.8X8 Other osteomyelitis, other site; M70.21 Olecranon bursitis, right elbow; D64.9 Anemia, unspecified; E78.5 Hyperlipidemia, unspecified; M06.9 Rheumatoid arthritis, unspecified; B95.61 Methicillin susceptible Staphylococcus aureus infection as the cause of diseases classified elsewhere; Z79.2 Long term (current) use of antibiotics; Z79.899 Other long term (current) drug therapy; Z86.14 Personal history of Methicillin resistant Staphylococcus aureus infection; Y84.8 Other medical procedures as the cause of abnormal reaction of the patient, or of later complication, without mention of misadventure at the time of the procedure
CPT/HCPCS: 36415; 36573; 80048; 80053; 80202; 82565; 83605; 85025; 85027; 85652; 86140; 87040; 87070; 87077; 87186; 87205; 96365; 96367; 99284

== ENCOUNTER 2020-10-31 20:58 | Emergency (ER) | payer MEDICARE, OTHER ==
[2020-10-31 21:04] VITALS: TEMP 98
--- NOTE | 2020-10-31 21:21 | ED ---
General Adult HPI - General Chief complaint: Recheck/Abnormal Lab/Rx Stated complaint: PIC Line problem Time Seen by Provider: 10/31/20 21:07 Source: patient Mode of arrival: ambulatory - History of Present Illness Initial comments: This patient is 70-year-old man who presents to be evaluated for his PICC line malfunctioning. The patient states that his had attempted to flush the PICC line tonight, in preparation to give his antibiotic dose, but that the PICC line would not flush. They were advised by their visiting nurse to go to the emergency department to have this resolved. Patient denies any other symptoms related to the PICC line. He has not noted fever or chills. He has not noted any redness or drainage from the site. No discomfort. The patient is being treated for right elbow infection and he is currently not having any complaints related to that -: hour(s) Severity scale (1-10): 0 Improves with: none Worsens with: none Associated Symptoms: denies other symptoms Treatments Prior to Arrival: none - Related Data Home Medications Medication Instructions Recorded Confirmed Albuterol Sulfate [Albuterol 1 puff PO RT-Q6H PRN 10/01/20 10/31/20 Sulfate Hfa] Cholecalciferol [Vitamin D3 (25 25 mcg PO DAILY 10/01/20 10/31/20 Mcg = 1000 Iu)] Folic Acid 1 mg PO DAILY 10/01/20 10/31/20 Naproxen [Naprosyn] 500 mg PO Q12HR PRN 10/01/20 10/31/20 Simvastatin [Zocor] 40 mg PO HS 10/01/20 10/31/20 metHOTREXate sodium [Methotrexate] 12.5 mg PO Q7D 10/01/20 10/31/20 Previous Rx's Medication Instructions Recorded HYDROcodone/APAP 5-325MG [[place] 5] 1 each PO Q6HR PRN #28 tab 10/03/20 ceFAZolin [Kefzol] 2 gm IVP Q8HR #120 vial 10/04/20 Cephalexin [Keflex] 500 mg PO Q6HR 1 Days #20 cap 11/01/20 Allergies Allergy/AdvReac Type Severity Reaction Status Date / Time No Known Allergies Allergy Verified 10/31/20 23:02 Review of Systems ROS Statement: Those systems with pertinent positive or pertinent negative responses have been documented in the HPI. ROS Other: All systems not noted in ROS Statement are negative. Constitutional: Denies: fever, chills, weakness Respiratory: Denies: cough, dyspnea Cardiovascular: Denies: chest pain, palpitations Past Medical History Past Medical History: Hyperlipidemia History of Any Multi-Drug Resistant Organisms: MRSA Date of last positivie culture/infection: 09/16/2020 MDRO Source:: right elbow Past Surgical History: Orthopedic Surgery Past Psychological History: No Psychological Hx Reported Smoking Status: Never smoker Past Alcohol Use History: Daily Past Drug Use History: None Reported General Exam General appearance: alert, in no apparent distress Respiratory exam: Present: normal lung sounds bilaterally. Absent: respiratory distress, wheezes, rales, rhonchi, stridor, accessory muscle use Cardiovascular Exam: Present: regular rate, normal rhythm, normal heart sounds. Absent: systolic murmur, diastolic murmur, rubs, gallop Left Upper Arm exam: Present: normal inspection, full ROM. Absent: tenderness, swelling, erythema Elbow exam: Present: normal inspection, full ROM, other (PICC line dressing is intact. There is no abnormal tenderness. No erythema or drainage. The right elbow is dressed with a wound VAC. No abnormal warmth. No drainage visible.). Absent: tenderness, swelling, erythema Forearm Wrist exam: Present: normal inspection Vascular: Present: normal capillary refill. Absent: vascular compromise Skin exam: Present: warm, dry, intact, normal color. Absent: rash, erythema Course Vital Signs 10/31/20 10/31/20 21:01 22:53 Temperature 98 F Pulse Rate 85 71 Respiratory 18 20 Rate Blood Pressure 138/75 120/71 O2 Sat by Pulse 98 95 Oximetry Medical Decision Making - Medical Decision Making This is a 70-year-old man who presents with complaint that his PICC line has stopped infusing. We did attempt to irrigate first with saline, and then after instilling TPA. The PICC line remained occluded. I therefore recommended that the patient be admitted to continue his IV antibiotic therapy, but the patient is declining that. He will take an IM shot of the cefazolin. He requests a prescription for oral medication and will see the PICC line nurse at first availability to have replacement. We discussed return parameters. Disposition Clinical Impression: Occlusion of peripherally inserted central catheter (PICC) line Disposition: Left Against Medical Advice Condition: Good Instructions (If sedation given, give patient instructions): Peripherally I nserted Central Catheters and Midline Catheters in... (DC) Prescriptions: Cephalexin [Keflex] 500 mg PO Q6HR 1 Days #20 cap Is patient prescribed a controlled substance at d/c from ED?: No Referrals: [facility],Clinic [Primary Care Provider] - 1-2 days
[2020-10-31] MEDS ORDERED: ALTEPLASE 2 MG VIAL (CATHFLO) IV ONE (21:45)
[2020-10-31 22:54] VITALS: PULSE 71; RESP 20
[2020-11-01] MEDS ORDERED: ceFAZolin 1,000 MG VIAL (IM USE) IM STA (01:07)
[2020-11-01 01:41] VITALS: BP 126/84
== END 2020-11-01 01:42 | disposition left against medical advice (07) ==
LOC: EC 20:58
DX: T82.594A Other mechanical complication of infusion catheter, initial encounter (principal); E78.5 Hyperlipidemia, unspecified; Y71.2 Prosthetic and other implants, materials and accessory cardiovascular devices associated with adverse incidents
CPT/HCPCS: 99283; 96374; 96372; J0690; J2997

== ENCOUNTER 2020-11-02 13:17 | Emergency (ER) | payer MEDICARE, OTHER ==
[2020-11-02 14:14] VITALS: BP 156/98; PULSE 79; RESP 18; TEMP 97.7
--- NOTE | 2020-11-02 14:14 | ED ---
General Adult HPI - General Stated complaint: pic line clogged Time Seen by Provider: 11/02/20 13:40 Source: patient Mode of arrival: ambulatory Limitations: no limitations - History of Present Illness Initial comments: This a 70-year-old male presented emergency from chief complaint of clogged. Patient seen here yesterday for similar problems and neurovascular back today with evaluated by interventional radiologist for possible PICC line. Patient arm. Patient has been receiving antibiotics. Patient has a wound VAC on his right arm - Related Data Home Medications Medication Instructions Recorded Confirmed Albuterol Sulfate [Albuterol 1 puff PO RT-Q6H PRN 10/01/20 10/31/20 Sulfate Hfa] Cholecalciferol [Vitamin D3 (25 25 mcg PO DAILY 10/01/20 10/31/20 Mcg = 1000 Iu)] Folic Acid 1 mg PO DAILY 10/01/20 10/31/20 Naproxen [Naprosyn] 500 mg PO Q12HR PRN 10/01/20 10/31/20 Simvastatin [Zocor] 40 mg PO HS 10/01/20 10/31/20 metHOTREXate sodium [Methotrexate] 12.5 mg PO Q7D 10/01/20 10/31/20 Previous Rx's Medication Instructions Recorded HYDROcodone/APAP 5-325MG [[place] 5] 1 each PO Q6HR PRN #28 tab 10/03/20 ceFAZolin [Kefzol] 2 gm IVP Q8HR #120 vial 10/04/20 Cephalexin [Keflex] 500 mg PO Q6HR 1 Days #20 cap 11/01/20 Allergies Allergy/AdvReac Type Severity Reaction Status Date / Time No Known Allergies Allergy Verified 11/02/20 14:11 Review of Systems ROS Statement: Those systems with pertinent positive or pertinent negative responses have been documented in the HPI. ROS Other: All systems not noted in ROS Statement are negative. Past Medical History Past Medical History: Hyperlipidemia History of Any Multi-Drug Resistant Organisms: MRSA Date of last positivie culture/infection: 09/16/2020 MDRO Source:: right elbow Past Surgical History: Orthopedic Surgery Past Psychological History: No Psychological Hx Reported Smoking Status: Never smoker Past Alcohol Use History: Daily Past Drug Use History: None Reported Course Vital Signs 11/02/20 14:12 Temperature 97.7 F Pulse Rate 79 Respiratory 18 Rate Blood Pressure 156/98 O2 Sat by Pulse 94 L Oximetry Medical Decision Making - Medical Decision Making Patient had PICC line removed secondary to clogged PICC line, midline was placed patient will be discharged in stable condition Disposition Clinical Impression: Occlusion of peripherally inserted central catheter (PICC) line Disposition: HOME SELF-CARE Condition: Stable Additional Instructions: Please return to the Emergency Department if symptoms worsen or any other concerns. Is patient prescribed a controlled substance at d/c from ED?: No Referrals: [facility],Clinic [Primary Care Provider] - 1-2 days Time of Disposition: 15:06
== END 2020-11-02 15:16 | disposition home or self-care (01) ==
LOC: CATHCVL 13:17
DX: T82.898A Other specified complication of vascular prosthetic devices, implants and grafts, initial encounter (principal); E78.5 Hyperlipidemia, unspecified; Y71.2 Prosthetic and other implants, materials and accessory cardiovascular devices associated with adverse incidents
CPT/HCPCS: 36410; 76937; 99283

== ENCOUNTER 2024-06-17 05:44 | Day surgery (SDC) | payer MEDICARE, OTHER ==
[2024-06-17] MEDS: LACTATED RINGERS 1,000 ML IV ONE (06:18)
[2024-06-17] MEDS: HEPARIN SODIUM,PORCINE 5,000 UNIT/ML 1 ML VIAL SQ PRN (06:22)
[2024-06-17] MEDS: ACETAMINOPHEN TAB 500 MG TAB PO PRN (06:22)
[2024-06-17] MEDS: LACTATED RINGERS 1,000 ML IV SCH (06:28)
[2024-06-17] MEDS: ONDANSETRON 4 MG/2 ML VIAL IVP ONE (06:29)
[2024-06-17] MEDS: DEXAMETHASONE SOD PHOSPHATE 4 MG/ML 1 ML VIAL IV ONE (06:29)
[2024-06-17] MEDS ORDERED: HYDROmorphone 0.5 MG/0.5 ML SYRINGE IVP PRN (07:00)
[2024-06-17] MEDS: fentaNYL (PF) 50 MCG/ML 2 ML AMP IVP PRN (07:20)
[2024-06-17] MEDS ORDERED: PHENYLEPHRINE 10 MG/ML VIAL ONE (07:27)
[2024-06-17] MEDS ORDERED: DEXAMETHASONE SOD PHOSPHATE 4 MG/ML 1 ML VIAL ONE (07:27)
[2024-06-17] MEDS ORDERED: ROCURONIUM 10 MG/ML (5 ML VIAL) IV ONE (07:27)
[2024-06-17] MEDS ORDERED: GLYCOPYRROLATE 0.2 MG/ML 2 ML VIAL ONE (07:27)
[2024-06-17] MEDS ORDERED: SUCCINYLCHOLINE CHLORIDE 200 MG/10 ML VIAL IV ONE (07:27)
[2024-06-17] MEDS ORDERED: LIDOCAINE 1% INJ 10MG/ML (20 ML MDV) ONE (07:27)
[2024-06-17] MEDS ORDERED: ROPIVACAINE 5 MG/ML 30 ML VIAL ONE (07:27)
[2024-06-17] MEDS ORDERED: SODIUM CHLORIDE 0.9% (PF) 10 ML VIAL ONE (07:27)
[2024-06-17] MEDS ORDERED: NEOSTIGMINE 1 MG/ML 10 ML VIAL ONE (07:27)
[2024-06-17] MEDS ORDERED: PROPOFOL 10 MG/ML 20 ML VIAL IV ONE (07:27)
[2024-06-17] MEDS: MIDAZOLAM 2 MG/2 ML VIAL IV PRN (07:28)
[2024-06-17] MEDS: ceFAZolin 2 GM in DEXTROSE 5% IN WATER 50 ML IVPB PRN (07:30)
--- NOTE | 2024-06-17 07:51 | P.ANPRN ---
Procedure Note - Anesthesia - Nerve Block Performed Bilateral Erector Spinae Single Time Out Performed: Yes Date of Procedure: 06/17/24 Procedure Start Time: : Procedure Stop Time: Location of Patient: PreOp Indication: Acute Post-Operative Pain, Requested by Surgeon Sedation Type: Sedate with meaningful contact maintained Preparation: Sterile Prep Position: Prone Needle Types: Pajunk Needle Gauge: 21 Ultrasound used to visualize needle placement: Yes Ultrasound used to observe medication spread: Yes Injectate: 0.5% Ropivacaine (see comment for volume) (20 mL +10 mL of normal saline +4 mg dexamethasone per side) Blood Aspirated: No Pain Paresthesia on Injection Noted: No Resistance on Injection: Normal Image Stored and Saved: Yes Events: Uneventful and Well Tolerated
[2024-06-17] MEDS: BUPIVACAINE (PF) 0.25% 30 ML VIAL SQ ONE ×2 (07:53)
--- NOTE | 2024-06-17 08:44 | P.OP ---
Date of Procedure: 06/17/24 Procedure(s) Performed: PREOPERATIVE DIAGNOSIS: Incarcerated umbilical hernia POSTOPERATIVE DIAGNOSIS: Same PROCEDURE: Open repair incarcerated umbilical hernia with mesh SURGEON: Dr. Son ANESTHESIA: General EBL: 5 cc OPERATIVE PROCEDURE DETAILS: The patient was placed in the operating table in the supine position. A left sided periumbilical incision was made using the scalpel. The subcutaneous tissues were dissected bluntly and with cautery. The hernia sac was identified. The umbilical attachments to the fascia were divided using electrocautery. The hernia sac was excised. The defect in the fascia measured 1.5 x 1 cm. The fat overlying the fascia was dissected. No additional defects were seen. The preperitoneal space was then dissected using blunt dissection and electrocautery. The 4.3 cm ventral ex mesh was placed beneath the fascia and sutured in place using trans-fascial 0 Ethibond sutures. The defect was closed using interrupted vest over pants 0 Ethibond mattress sutures. The subcutaneous tissues were reapproximated using inverted 2-0 & 3-0 Vicryl sutures. The umbilicus was tacked back down to the fascia using a 2-0 Vicryl suture. The skin was closed using 4-0 Monocryl sutures. Skin glue and sterile dressings were then applied. HERNIA CHARACTERISTICS: Length: 1 cm Width: 1.5 cm Type: Umbilical TYPE OF MESH USED: Ventralex LOCATION OF MESH: Sublay extraperitoneal FIXATION: 0 Ethibond PREOPERATIVE DISCUSSION ON SMOKING CESSASTION: Yes PREOPERATIVE DISCUSSION ON MORBID OBESITY: Yes PREOPERATIVE DISCUSSION ON APPROPRIATE USE OF NARCOTIC USE: Yes PREOPERATIVE EDUCATION: Multi Modal, Smoking Cessation and Weight Loss with BMI over 35. DISPOSITION: Stable to recovery room
[2024-06-17 08:48] VITALS: TEMP 97.5
[2024-06-17 09:22] VITALS: RESP 16
[2024-06-17] MEDS: IV FLUID CONTINUATION 1,000 ML IV ONE (11:16)
[2024-06-17] MEDS ORDERED: IBUPROFEN 600 MG TAB PO SCH (12:00)
[2024-06-17 12:03] VITALS: BP 154/84; PULSE 63
[2024-06-17] MEDS ORDERED: ACETAMINOPHEN TAB 325 MG TAB PO SCH (16:00)
== END 2024-06-17 12:00 | disposition home or self-care (01) ==
LOC: OR 05:44
PROVIDERS: ATTEND Surgery
DX: K42.0 Umbilical hernia with obstruction, without gangrene (principal); G89.18 Other acute postprocedural pain
CPT/HCPCS: 64468; 49592; C1781; J2250; J0330; J1644; J1100; J2710; J0690; J2405; J2003; J3010; J2795; J2704; J2371; J0665; J1596